=== PATIENT | male | born 1980 | race Caucasian/White ===

== ENCOUNTER 2019-06-06 10:35 | Outpatient (CLI) | payer BC, SELFPAY ==
--- NOTE | ~2019-06-06 | CT_ITS ---
EXAMINATION: CT sinus wo con DATE: 06/06/2019 11:13 INDICATION: Migraine headache for 3 weeks. Sinusitis. TECHNIQUE: Computed tomography (CT) of the paranasal sinuses was performed without contrast. Iterativ e reconstruction technique was employed. Exam dose: 325.47 mGy-cm total exam DLP. COMPARISON: None FINDINGS: There is prominent symmetric soft tissue swelling of the nasal turbinates. There is intralamellar cell of the left middle nasal turbinate. There is leftward deviation of the lower left nasal septum and rightward deviation of the upper nasal septum. The osteomeatal units are patent bilaterally. There is a small mucous retention cyst or focal mucoperiosteal thickening at the inferomedial aspect of the right frontal sinus. The frontal sinuses are otherwise clear. There are focal areas of soft tissue thickening of the ethmoid air cells. There is prominent soft tissue thickening at the inferior aspect of the maxillary sinuses. There is slight focal mucoperiosteal thickening of the sphenoid sinuses. The mastoid air cells are normally developed and aerated. IMPRESSION: Soft tissue swelling of the nasal turbinates Nasal septum deviation Bilateral mucoperiosteal thickening of the maxillary sinuses, with minimal involvement of right front al, ethmoid and bilateral sphenoid sinuses Reviewed, dictated and finalized at [facility]. Reviewed, dictated and finalized at location [facility]. IMPRESSION: Soft tissue swelling of the nasal turbinates Nasal septum deviation Bilateral mucoperiosteal thickening of the maxillary sinuses, with minimal invo lvement of right frontal, ethmoid and bilateral sphenoid sinuses
== END 2019-06-06 10:36 | disposition home or self-care (01) ==
PROVIDERS: PCP Physician Assistant; Visit Provider Physician Assistant
DX: J32.9 Chronic sinusitis, unspecified (principal); J34.2 Deviated nasal septum
CPT/HCPCS: 70486

== ENCOUNTER 2021-05-20 00:14 | Day surgery (SDC) | payer BC, SELFPAY ==
[2021-05-06 13:03] VITALS: BMI 28.4
--- NOTE | 2021-05-18 20:28 | PM.HPGS ---
History of Present Illness History of Present Illness Consent: Risks, benefits, and alternatives have been discussed and questions answered. Patient agrees to proceed with procedure. Chief complaint: family hx of colon ca, neoplasm screening Narrative: Javier Guerrero is a 40 year old male referred for colon cancer screening. His mother had colon cancer. Review of Systems Review of Systems: All systems reviewed & are unremarkable except as noted in HPI and below PMFSH Family History Family History Sibling Depression Grandparent Cerebrovascular accident Mother Carcinoma of colon, Onset Age: 57 Family history of lung cancer, Onset Age: 57 Social History Social History Smoking status: Never smoker Alcohol intake: current Substance use type: does not use Living arrangements: with family Spiritual care concerns: No Meds Home Medications and Allergies Home Medications Medication Instructions Recorded Confirmed Type pantoprazole 40 mg tablet,delayed 40 mg PO QAM 07/25/19 05/06/21 History release Allergies Allergy/AdvReac Type Severity Reaction Status Date / Time diclofenac Allergy Severe Swelling Verified 05/20/21 07:41 Exam Resp: Auscultation: clear to auscultation bilaterally Cardio: Rate: regular rate Rhythm: regular rhythm GI: GI Palp: Yes Soft to palpation and No Tenderness to palpation present (GI) Assessment and Plan Assessment and plan (1) Colon cancer screening: Code(s): Z12.11 - Encounter for screening for malignant neoplasm of colon Status: Acute Assessment and Plan: Colonoscopy with possible biopsy or polypectomy or cautery or injection of substances.
[2021-05-20 07:42] VITALS: BP 116/73; PULSE 78; RESP 20; TEMP 36.8; O2SAT 97; BMI 28.3
[2021-05-20] MEDS: LACTATED RINGERS 1,000 ML 150 ML IV CONT (07:50)
--- NOTE | 2021-05-20 08:34 | P.PNAN_ITS ---
Anes - Initial Pre Proc Eval Procedure: Operation Date: 05/20/21 09:00 Proposed Procedures p Screening Colonoscopy - Felix Baker MD Date/Time: 05/20/21 08:34 Surgeon: Felix Baker MD Pre Op Diagnosis: family hx of colon ca, neoplasm screening Patient Data Age: 40 Gender: M Height: 1.83 m Weight: 94.9 kg Last Vital Signs Temp 98.3 F 05/20/21 07:42 Pulse 78 05/20/21 07:42 Resp 20 05/20/21 07:42 BP 116/73 05/20/21 07:42 Pulse Ox 97 05/20/21 07:42 Allergies Allergy/AdvReac Type Severity Reaction Status Date / Time diclofenac Allergy Severe Swelling Verified 05/20/21 07:41 Home Medications Medication Instructions Recorded Confirmed Type pantoprazole 40 mg tablet,delayed 40 mg PO QAM 07/25/19 05/06/21 History release Patient hx anesthesia problems: none Family hx anesthesia problems: none Results Review: All pre-operative results and documents have been reviewed as part of the pre-operative evaluation. [facility] Past Medical History Medical History (Updated 05/20/21 @ 08:30 by Pio Puente MD) GERD (gastroesophageal reflux disease) Family History Family History Sibling Depression Grandparent Cerebrovascular accident Mother Carcinoma of colon, Onset Age: 57 Family history of lung cancer, Onset Age: 57 Social History Social History Smoking status: Never smoker Alcohol intake: current Substance use type: does not use Living arrangements: with family Spiritual care concerns: No Anes - Eval Final PreProcedure Day of Procedure 05/20/21 08:34 Patient weight: normal Heart: regular rate and rhythm Lungs: clear to auscultation Airway: Mallampati scale class II Neurological: alert and oriented Last oral intake: >/= 8 hours ASA classification: II Emergent: no Anesthetic plan: proceed Anesthesia type and monitoring: general GIVS and standard monitoring Results Review: All pre-operative results and documents have been reviewed as part of the pre-operative evaluation. Informed Consent: The patient's anesthetic plan and its attendant risks and benefits were discussed with the patient/family/POA. Questions were solicited and answers provided to the satisfaction of the patient/family/POA.
[2021-05-20 09:32] VITALS: BP 100/64; PULSE 66; RESP 17; O2SAT 98
[2021-05-20 09:42] VITALS: BP 106/72; PULSE 69; RESP 19; O2SAT 98
[2021-05-20 09:52] VITALS: BP 110/72; PULSE 70; RESP 19; O2SAT 98
== END 2021-05-20 09:55 | disposition home or self-care (01) ==
PROVIDERS: PCP Physician Assistant; Visit Provider Internal Medicine Gastroenterology
PROC: 0DJD8ZZ Inspection of Lower Intestinal Tract, Via Natural or Artificial Opening Endoscopic (ICD-10-PCS; CPT 45378; principal; 2021-05-20 09:00)
DX: Z12.11 Encounter for screening for malignant neoplasm of colon (principal); Z80.0 Family history of malignant neoplasm of digestive organs; K21.9 Gastro-esophageal reflux disease without esophagitis
CPT/HCPCS: 45378; J2001; J2704; J7120

== ENCOUNTER 2023-11-11 15:10 | Outpatient (CLI) | payer BC, SELFPAY ==
--- NOTE | ~2023-11-11 | XR_ITS ---
EXAMINATION: XR chest 2V 11/11/2023 15:20 INDICATION: Hiccups for 4 days PROCEDURE: 2 view chest COMPARISON: 12/05/2015 FINDINGS: The lungs are clear. The lungs are hyperinflated which is consistent with, but not diagnost ic of chronic obstructive pulmonary disease. The cardiomediastinal silhouette is within normal limit s. There are no pleural effusions. There is no pneumothorax suspected. IMPRESSION: 1: NO ACUTE CARDIOPULMONARY DISEASE. Reviewed, dictated and finalized at location [facility].
== END 2023-11-11 15:11 ==
LOC: MICIMG 15:11
PROVIDERS: PCP Physician Assistant; Visit Provider Physician Assistant
DX: R06.6 Hiccough (principal)
CPT/HCPCS: 71046

== ENCOUNTER 2023-12-05 13:48 | Outpatient (CLI) | payer BC, SELFPAY ==
--- NOTE | ~2023-12-05 | CT_ITS ---
EXAMINATION: CTA chest PE protocol DATE: 12/05/2023 14:52 INDICATION: Dyspnea. TECHNIQUE: Computed tomography angiography (CTA) of the chest was performed with 100 mL Omnipaque-350 intravenous contrast timed to evaluate the pulmonary arteries. Coronal maximum intensity projection 3D-reconstructions were created by the technologist. Automated exposure control and iterative reconst ruction technique were employed. The dose-length product was 635.92 mGy-cm. COMPARISON: Chest CT 03/27/2018 FINDINGS: The lungs demonstrate mild atelectasis. No pleural effusion. The heart size is normal. No p ericardial effusion. There is mild bilateral gynecomastia. There are cysts in left kidney measuring u p to 2.3 cm. There is mild thoracic spondylosis. There is mild chronic anterior wedging of T11-L2 briseida tebral bodies. IMPRESSION: 1. No pulmonary embolus. Reviewed, dictated and finalized at location [facility]. IMPRESSION: 1. No pulmonary embolus.
--- NOTE | ~2023-12-05 | XR_ITS ---
XR abdomen obstructive series Ordering provider: Lisa Costello, ZAC History: . N V, PERSISTENT HICCUPS, NO ABD SURGERIES . Comparison: None. FINDINGS: BOWEL: Nonobstructive bowel gas pattern. ORGANOMEGALY: None. SIGNIFICANT PATHOLOGIC CALCIFICATIONS: None. OTHER: No free air is seen under the diaphragm. IMPRESSION: NO ACUTE ABDOMINAL FINDINGS. Reviewed, dictated and finalized at location [facility].
[2023-12-05 15:10] LABS: Basophils Absolute Auto 0.1 K/mm3 (0.0-0.1); Basophils Percent Auto 1.1 % (0.2-1.2); Eosinophils Absolute Auto 0.1 K/mm3 (0-0.3); Eosinophils Percent Auto 2.3 % (0-4.4); Hematocrit 42.9 % (42.0-52.0); Hemoglobin 14.5 g/dL (14.0-18.0); Immature Granulocyte Absolute 0.01 K/mm3 (0.00-0.031); Immature Granulocyte Percent A 0.2 % (0-0.5); Lymphocytes Absolute Auto 1.45 K/mm3 (0.9-3.2); Lymphocytes Percent Auto 26.1 % (18.3-44.2); Mean Corpuscular HGB Conc 33.8 g/dl (32-36); Mean Corpuscular Volume 88.6 fl (80-100); Mean Platelet Volume 9.1 fl (7.4-10.4); Monocytes Absolute Auto 0.5 K/mm3 (0.1-0.6); Monocytes Percent Auto 8.8 % (2.6-8.5); Neutrophils Absolute Auto 3.4 K/mm3 (1.3-6.7); Neutrophils Percent Auto 61.5 % (45.5-73.1); Platelet Count Result 241 k/mm3 (150-375); Red Blood Count 4.84 M/mm3 (4.6-6.20); Red Cell Distribution Width 13.1 % (11.5-14.5); White Blood Count 5.6 K/mm3 (4.5-10.0)
[2023-12-05 15:21] LABS: Alanine Aminotransferase 701 U/L (6-50); Albumin Level 4.6 g/dL (3.5-5.1); Alkaline Phosphatase 192 U/L (38-126); Amylase 108 U/L (30-110); Anion Gap 13 mmol/L (4-12); Aspartate Amino Transferase 326 U/L (17-59); Bilirubin,Total 5.7 mg/dL (0.2-1.3); Blood Urea Nitrogen 10 mg/dL (9-20); Calcium 9.2 mg/dL (8.4-10.2); Carbon Dioxide 26 mmol/L (22-30); Chloride 96 mmol/L (98-107); Estimated Glomerular Filt Rate > 60; Glucose 99 mg/dL (65-110); Magnesium 1.9 mg/dL (1.6-2.3); Potassium 3.9 mmol/L (3.4-5.0); Sodium 135 mmol/L (137-145)
== END 2023-12-05 13:49 | disposition home or self-care (01) ==
LOC: ANHIMG 13:56
PROVIDERS: PCP Physician Assistant; Visit Provider Physician Assistant
DX: R06.00 Dyspnea, unspecified (principal); R11.2 Nausea with vomiting, unspecified
CPT/HCPCS: 36415; 71275; 74019; 80053; 82150; 83735; 85025; Q9967

== ENCOUNTER 2023-12-05 20:53 | Inpatient (IN) | payer BC, SELFPAY ==
--- NOTE | ~2023-12-05 | CT_ITS ---
CT of the Abdomen and Pelvis: Indication: Jaundice Technique: 2.5 mm axial scans were obtained through the abdomen and pelvis following intravenous adm inistration of 100 cc of Omnipaque 350. Dose reduction technique was used on this scan by utilizing a utomated exposure control and iterative reconstruction technique. The dose-length product (DLP) was 5 76.26 mGy-cm. Findings: Scans through the lung bases are unremarkable. The liver, spleen, pancreas, gallbladder, adrenals and right kidney are within normal limits. There i s a 1 cm indeterminate density lesion partially exophytic at the lateral aspect of left kidney (axial image 76). Additional simple left renal cyst present. No evidence of aortic aneurysm. No lymphadeno lena. No bowel obstruction or bowel wall thickening. There is no evidence to suggest acute appendicitis. Images through the pelvis were performed. Urinary bladder unremarkable. No pelvic mass seen. No ascit es. Impression: 1 cm indeterminate lesion at the lateral aspect of left kidney. Pre and postcontrast MR advised to as sess for solid lesion versus hyperdense cystic lesion. No etiology for jaundice identified. Reviewed, dictated and finalized at [facility]. Impression: 1 cm indeterminate lesion at the lateral aspect of left kidney. Pre and postcon trast MR advised to assess for solid lesion versus hyperdense cystic lesion. No etiology for jaundice identified.
--- NOTE | ~2023-12-05 | CT_ITS ---
EXAMINATION: CT abdomen pelvis w con DATE: 12/07/2023 15:05 INDICATION: New abdominal pain TECHNIQUE: Computed tomography (CT) of the abdomen and pelvis was performed with 100 mL Omnipaque-350 intravenous contrast. Automated exposure control and iterative reconstruction technique were employe d. The dose-length product was 559.70 mGy-cm. COMPARISON: CT and MRI dated 12/06/2023 FINDINGS: Lung bases are clear. Heart size is normal. No pericardial or pleural effusion. A couple approximatel y 5 mm low-attenuation cysts in the right hepatic lobe. Gallbladder, spleen, pancreas, bilateral adre nal glands and right kidney are normal. Again seen is a 2.7 cm low-attenuation left renal cyst along with a smaller and higher attenuation 1.2 cm proteinaceous/hemorrhagic left renal cyst which was with out enhancement on the prior CT. Bowels including the appendix are normal. Bladder is normal. No free intraperitoneal gas or fluid. No pathologically enlarged abdominal or pelvic lymphadenopathy. Modera te lumbar and lower thoracic spondylosis. IMPRESSION: 1. No acute intra-abdominal/pelvic process. Reviewed, dictated and finalized at location [facility].
--- NOTE | ~2023-12-05 | MR_ITS ---
EXAMINATION: MR abdomen wo/w con DATE: 12/06/2023 13:02 INDICATION: Left kidney mass. TECHNIQUE: Magnetic resonance imaging (MRI) of the abdomen was performed without and with 19 mL Multi Margarito intravenous contrast. COMPARISON: CT abdomen and pelvis 12/06/2023 FINDINGS: The liver, gallbladder, spleen, pancreas, adrenal glands, and right kidney are normal. There is a 2.6 cm cyst in left kidney. There is a 1.2 cm hemorrhagic cyst in left kidney. There are no pathological ly enlarged lymph nodes. There is no free intraperitoneal fluid. There are no dilated loops of bowel. IMPRESSION: 1. Benign cysts in left kidney. Reviewed, dictated and finalized at location [facility].
[2023-12-05 20:55] VITALS: BP 119/73; PULSE 71; RESP 16; TEMP 36.6; O2SAT 100
[2023-12-06] VITALS (10 sets, daily range): BP systolic 102–119; BP diastolic 61–77; PULSE 63–78; RESP 14–18; TEMP 37.1; O2SAT 97–100; BMI 29.0
--- NOTE | 2023-12-06 02:15 | ED.GENADULT ---
HPI - General Adult General Chief complaint: Recheck/Abnormal Lab/Rx Stated complaint: abnormal labs Time Seen by Provider: 12/06/23 01:32 History of Present Illness HPI narrative: Patient is a 42-year-old gentleman presents emergency department chief complaint of abnormal labs. Patient has not been feeling well for the last 1-2 weeks and signs primary care provider patient started having change in coloration is and psych primary care provider and recheck labs showed bilirubin remains elevated. Patient reports he is not having pain reports that he has no shortness of breath just feels unwell patient has noticed her urine is dark colored Related Data Home Medications Medication Instructions Recorded Confirmed pantoprazole 40 mg tablet,delayed 40 mg PO QAM 07/25/19 05/06/21 release Allergies Allergy/AdvReac Type Severity Reaction Status Date / Time diclofenac Allergy Severe Swelling Verified 05/20/21 07:41 Review of Systems Review of Systems: A 10 system review of systems was completed on the patient and is negative except for what is stated in the HPI. Nursing and ancillary documentation was reviewed. [facility] Past Medical History Medical History GERD (gastroesophageal reflux disease) Family History Family History Sibling Depression Grandparent Cerebrovascular accident Mother Carcinoma of colon, Onset Age: 57 Family history of lung cancer, Onset Age: 57 Social History Social History Smoking status: Never smoker Alcohol intake: current Substance use type: does not use Living arrangements: with family Spiritual care concerns: No Exam Narrative: GENERAL: Well-appearing, well-nourished, and in no acute distress. HEAD: Normocephalic, atraumatic. EYES: PERRLA and EOMI. Scleral icterus ENT: Nares clear, no rhinorrhea or epistaxis. Mucous membranes moist. NECK: Supple. CHEST: Clear to auscultation. No respiratory distress. HEART: Regular rate and rhythm. No murmur heard. Normal peripheral pulses. ABDOMEN: Soft, nontender, nondistended, normal active bowel sounds. EXTREMITIES: Normal range of motion. No edema. SKIN: Warm, dry, no rash. Jaundice NEURO: No focal deficits. Alert and oriented x3. PSYCH: Normal mood and affect. Course Vital Signs Vital signs: Vital Signs Temperature 36.6 C 12/05/23 20:55 Pulse Rate 71 12/05/23 20:55 Respiratory Rate 16 12/05/23 20:55 Blood Pressure 119/73 12/05/23 20:55 Pulse Oximetry 100 12/05/23 20:55 Oxygen Delivery Room Air 12/05/23 20:55 Temperature 36.6 C 12/05/23 20:55 Pulse Rate 70 12/06/23 03:42 Respiratory Rate 14 12/06/23 03:42 Blood Pressure 113/71 12/06/23 03:42 Pulse Oximetry 100 12/06/23 03:42 Oxygen Delivery Room Air 12/05/23 20:55 Medical Decision Making MDM Narrative Medical decision making narrative: Differential diagnosis includes pancreatic mass, viral hepatitis, toxic causes, Laboratory studies were obtained on the patient which showed significantly elevated liver enzymes including bilirubin CT scan of the abdomen pelvis showed no acute abnormalities viral hepatitis panel was negative. The case was discussed with hospitalist for admission Vital Signs Vital Signs: Vital Signs Temperature 36.6 C 12/05/23 20:55 Pulse Rate 71 12/05/23 20:55 Respiratory Rate 16 12/05/23 20:55 Blood Pressure 119/73 12/05/23 20:55 Pulse Oximetry 100 12/05/23 20:55 Oxygen Delivery Room Air 12/05/23 20:55 Temperature 36.6 C 12/05/23 20:55 Pulse Rate 70 12/06/23 03:42 Respiratory Rate 14 12/06/23 03:42 Blood Pressure 113/71 12/06/23 03:42 Pulse Oximetry 100 12/06/23 03:42 Oxygen Delivery Room Air 12/05/23 20:55 Lab Data 12/06/23 02:18
[2023-12-06 02:28] LABS: Basophils Absolute Auto 0.1 K/mm3 (0.0-0.1); Basophils Percent Auto 0.8 % (0.2-1.2); Eosinophils Absolute Auto 0.1 K/mm3 (0-0.3); Eosinophils Percent Auto 1.8 % (0-4.4); Hematocrit 42.2 % (42.0-52.0); Hemoglobin 14.6 g/dL (14.0-18.0); Immature Granulocyte Absolute 0.02 K/mm3 (0.00-0.031); Immature Granulocyte Percent A 0.3 % (0-0.5); Lymphocytes Absolute Auto 1.91 K/mm3 (0.9-3.2); Lymphocytes Percent Auto 29.1 % (18.3-44.2); Mean Corpuscular HGB Conc 34.6 g/dl (32-36); Mean Corpuscular Hemoglobin 30.1 pg (26-34); Mean Platelet Volume 9.5 fl (7.4-10.4); Monocytes Absolute Auto 0.6 K/mm3 (0.1-0.6); Monocytes Percent Auto 8.4 % (2.6-8.5); Neutrophils Absolute Auto 3.9 K/mm3 (1.3-6.7); Neutrophils Percent Auto 59.6 % (45.5-73.1); Platelet Count Result 255 k/mm3 (150-375); Red Blood Count 4.85 M/mm3 (4.6-6.20); White Blood Count 6.6 K/mm3 (4.5-10.0)
[2023-12-06] MEDS: LORazepam INJ (*CRX) 2 MG/ML VIAL 0.5 MG IV PUSH (02:32)
[2023-12-06 02:40] LABS: Partial Thromboplastin Time 24.8 Seconds (22.3-36.8); Prothrombin Time 13.3 Seconds (11.1-14.7)
[2023-12-06 02:41] LABS: Lactic Acid Reflex 1.1 mmol/L (0.7-2.0); Lipase 237 U/L (23-300)
[2023-12-06 02:45] LABS: Albumin Level 4.7 g/dL (3.5-5.1); Alkaline Phosphatase 217 U/L (38-126); Aspartate Amino Transferase 419 U/L (17-59); Bilirubin Direct 2.6 mg/dL (0-0.3); Bilirubin,Total 6.7 mg/dL (0.2-1.3)
[2023-12-06 02:46] LABS: Albumin Level 4.7 g/dL (3.5-5.1); Alkaline Phosphatase 214 U/L (38-126); Anion Gap 16 mmol/L (4-12); Aspartate Amino Transferase 417 U/L (17-59); Bilirubin,Total 6.7 mg/dL (0.2-1.3); Blood Urea Nitrogen 11 mg/dL (9-20); Calcium 9.6 mg/dL (8.4-10.2); Carbon Dioxide 22 mmol/L (22-30); Chloride 98 mmol/L (98-107); Estimated CRCL calculation 101 ml/min; Estimated Glomerular Filt Rate > 60; Glucose 109 mg/dL (65-110); Potassium 3.5 mmol/L (3.4-5.0); Sodium 136 mmol/L (137-145)
[2023-12-06 03:04] LABS: Add Urine Microscopic? YES; Appearance Urine Clear (Clear); Bacteria Urine None Seen /hpf; Bilirubin Urine 3+ (Negative); Blood Urine Negative (Negative); Color Urine Dark Yellow (Yellow); Glucose Urine UA Negative (Negative); Ketones Urine 2+ mg/dL (Negative); Leukocyte Esterase Ur 1+ LEU/UL (Negative); Need Manual Microscopic Reviewed; Nitrate Urine Positive (Negative); Non Pathogenic Casts 0-2; Protein Urine 1+ mg/dL (Negative); RBC Urine 0-2 /hpf (0-2); Specific Grav Ur 1.041 (1.001-1.035); Squamous Epithelial Cell Urine None Seen /hpf (Few); WBC Urine 0-5 /hpf (0-3); pH Urine 5.5 (5.0-9.0)
[2023-12-06 03:37] LABS: Alanine Aminotransferase 814 U/L (6-50); Alanine Aminotransferase 831 U/L (6-50)
[2023-12-06 04:27] LABS: Hepatitis B Surface Antigen Negative (Negative)
[2023-12-06 04:33] LABS: HAV RESULT Negative (Negative); Hepatitis B Core IgM Result Negative (Negative)
[2023-12-06 04:44] LABS: Hepatitis C Virus Antibody Negative (Negative)
[2023-12-06 07:22] LABS: Acetaminophen < 10 ug/mL (10-30)
[2023-12-06] MEDS: SODIUM CHLORIDE 0.9% IV 1,000 ML 125 ML IV CONT ×2 (08:17→21:00)
--- NOTE | 2023-12-06 09:54 | ADMGEN ---
This patient, Javier Guerrero, was admitted to 3 [facility] Surg Room 314-01. Patient/family oriented to hospital policies and general routines including ID bracelet, bed and alarms, visiting hours, pain management, procedures, bathroom and other care routines, personal items, smoking policy, room service/diet, and visiting hours. Information on how to activate the Rapid Response Team has been discussed. Patient/Family are encouraged to report perceived risks to care and to ask questions if they do not understand what they are told or what they should do. Report from Alee in ER.
--- NOTE | 2023-12-06 14:01 | WPDGICN ---
Assessment and Plan Assessment and plan (1) Elevated liver enzymes: Code(s): R74.8 - Abnormal levels of other serum enzymes Status: Acute Assessment and Plan: here with almost 5 days of flu like symptom, pending covid/influenza/EBV/CMV most likely viral related imaging is completely normal monitor, ok to advance diet (2) Flu-like symptoms: Code(s): R68.89 - Other general symptoms and signs Status: Acute (3) Acute hepatitis: Code(s): B17.9 - Acute viral hepatitis, unspecified Status: Acute Assessment and Plan: hepatitis a/b/c negative probably another viral etiology will monitor (4) GERD (gastroesophageal reflux disease): Code(s): K21.9 - Gastro-esophageal reflux disease without esophagitis Status: Acute Assessment and Plan: on ppi (5) Nausea and vomiting in adult: Code(s): R11.2 - Nausea with vomiting, unspecified Status: Acute GI Consult Note Consult date/time: 12/06/23 14:01 Reason for consult: elevated liver enzymes, flu-lie symptom HPI: Javier Guerrero is a 42 year old male with h/o GERD on protonix (last egd about 8 years ago). He is healthy and about 5 days ago started with sore throat, hiccups, cough then shortness of breath, malaise and generalized weakness, chills and discomfort in throat after eating, also about 2 days ago had n/v, denies abdominal pain. Yesterday noted icteric sclerae and dark urine. Denies alcohol use, antibiotics or acetaminophen. His PCP gave him course of steroid but denies any other medication. He was found to have elevated liver enzymes and admitted to hospital. He had CTA chest and MRI abdomen, no major findings other than cyst in kidney. Hepatitis negative, denies sick contacts. He works with [employer] and he works with several people, no recent trips outside the country. Denies h/o liver disease. Review of Systems Constitutional: Constitutional: Reports body ache(s), Reports chills, Reports fatigue and Reports lethargy Eyes: Eyes: Denies blurry vision ENT: Reports Normal hearing present Cardiovascular: Cardiovascular: Denies chest pain Respiratory: Respiratory: Reports dyspnea on exertion Gastrointestinal: Gastrointestinal: Denies abdominal pain, Reports nausea and Reports vomiting Genitourinary: Genitourinary: Denies urinary frequency Comments: dark urine Musculoskeletal: Musculoskeletal: Reports myalgias Integumentary/Breasts: Skin/Breast: Denies dry skin Neurologic: Denies confusion Psychiatric: Psychiatric: Denies behavioral changes [facility] Past Medical History Medical History (Updated 12/06/23 @ 14:07 by John Jefferson MD) Elevated liver enzymes Flu-like symptoms GERD (gastroesophageal reflux disease) Nausea and vomiting in adult Family History Family History (Updated 12/06/23 @ 09:57 by Virginie Whipple RN) Sibling Depression Grandparent Cerebrovascular accident Family history of lung cancer Mother Carcinoma of colon, Onset Age: 57 Social History Social History Smoking status: Never smoker Alcohol intake: current Drinks per week: 1 Substance use: never Substance use type: does not use Do You Feel Safe in your Home?: Yes Lack of Transportation: No Lack of Food: Never True Current Housing: I Have Housing Concerned About Future Housing: No Difficulty Paying Gas/Electric Bills: No Difficulty Paying for Meds: No Currently Unemployed: No Education: Don't Know Difficulty w/ Childcare or Family Care: No Living arrangements: with family Spiritual care concerns: No Meds Home Medications and Allergies Home Medications Medication Instructions Recorded Confirmed Type pantoprazole 40 mg tablet,delayed 40 mg PO QAM 07/25/19 12/06/23 History release Allergies Allergy/AdvReac Type Severity Reaction Status Date / Time d
[2023-12-06 14:10] LABS: Influenza A QL RT-PCR Negative (Negative); Influenza B QL RT-PCR Negative (Negative); RSV RNA, RT-PCR Negative (Negative); SARS-CoV-2 RNA PCR Negative (Negative)
--- NOTE | 2023-12-06 16:08 | PM.IMHP ---
H&P: HPI History of Present Illness Date/Time: 12/06/23 16:08 Chief Complaint: gen weakness and sore throat Narrative: 42-year-old male with no significant past medical history presented on account of generalized weakness, sore throat, vomiting and nausea. Symptoms has been going on for the past 3 weeks, all symptoms represented by sore throat. Noted in the last 1 week he has not been able to eat has lost about 10 lb. S wound noticed a yellow lesion itself is skin and eyes. Denies any fever, chest pain, dysuria, diarrhea or focal weakness. ER eval vital signs wnl, labs notable for T vinny 6.7, AST 417, ALT 831, Alk phos 214, Acetaminophen <10l, hepatitis viral panel, Flu , Covid and RSV negative. CTA chest, AP and MRI ABD negative. MRI showed simple renal cyst. GI eval noted Review of Systems Review of Systems: All other systems were reviewed and negative except as noted in the HPI above. [facility] Past Medical History Medical History (Updated 12/06/23 @ 14:07 by John Jefferson MD) Elevated liver enzymes Flu-like symptoms GERD (gastroesophageal reflux disease) Nausea and vomiting in adult Family History Family History (Updated 12/06/23 @ 09:57 by Virginie Whipple RN) Sibling Depression Grandparent Cerebrovascular accident Family history of lung cancer Mother Carcinoma of colon, Onset Age: 57 Social History Social History Smoking status: Never smoker Alcohol intake: current Drinks per week: 1 Substance use: never Substance use type: does not use Do You Feel Safe in your Home?: Yes Lack of Transportation: No Lack of Food: Never True Current Housing: I Have Housing Concerned About Future Housing: No Difficulty Paying Gas/Electric Bills: No Difficulty Paying for Meds: No Currently Unemployed: No Education: Don't Know Difficulty w/ Childcare or Family Care: No Living arrangements: with family Spiritual care concerns: No Meds Home Medications and Allergies Home Medications Medication Instructions Recorded Confirmed Type pantoprazole 40 mg tablet,delayed 40 mg PO QAM 07/25/19 12/06/23 History release Allergies Allergy/AdvReac Type Severity Reaction Status Date / Time diclofenac Allergy Severe Swelling Verified 03/02/22 07:41 Vital Signs Vital Signs - 24 hr 12/05/23 20:55 12/06/23 03:42 12/06/23 03:00 Temperature 97.9 F Pulse Rate 71 70 Respiratory Rate 16 14 17 Blood Pressure 119/73 113/71 Pulse Oximetry 100 100 100 Oxygen Delivery Room Air 12/06/23 04:00 12/06/23 05:01 12/06/23 06:02 Temperature Pulse Rate 67 65 63 Respiratory Rate 16 17 15 Blood Pressure 119/65 116/68 111/75 Pulse Oximetry 97 100 100 Oxygen Delivery 12/06/23 06:45 12/06/23 07:58 12/06/23 08:16 Temperature 98.7 F Pulse Rate 76 73 78 Respiratory Rate 18 18 18 Blood Pressure 111/77 114/69 116/67 Pulse Oximetry 100 97 100 Oxygen Delivery Exam Narrative: General: alert and comfortable Eyes: EOMI, PERRLA , jaundice ENNT External ears normal, Neck is supple, no masses, Respiratory systems: Clear to auscultation Cardiovascular S1, S2, normal rhythm, no murmur, rub, or gallop; no thrill or palpable murmurs on palpation. Gastrointestinal: soft, non-tender, and non-distended abdomen with no masses; BS present Skin: sallow Musculoskeletal: no abnormality and no tenderness, normal ROM Neurologic: Alert and oriented x3, non focal Mental Status Exam: normal affect H&P: Results Labs Labs: Short CBC 12/06/23 Range/Units 02:18 WBC 6.6 (4.5-10.0) K/mm3 Hgb 14.6 (14.0-18.0) g/dL Hct 42.2 (42.0-52.0) % Plt Count 255 (150-375) k/mm3 [facility] 12/06/23 02:18 Sodium 136 L Potassium 3.5 Chloride 98 Carbon Dioxide 22 BUN 11 Creatinine 0.90 Glucose 109 Calcium 9.6 Liver Function 12/06/23 12/06/2311/19
[2023-12-07] MEDS: SODIUM CHLORIDE 0.9% IV 1,000 ML 125 ML IV CONT ×3 (04:53→22:21)
[2023-12-07 05:26] VITALS: BP 104/65; PULSE 76; RESP 16; TEMP 36.6; O2SAT 99
[2023-12-07 07:07] LABS: Basophils Absolute Auto 0.1 K/mm3 (0.0-0.1); Basophils Percent Auto 1.1 % (0.2-1.2); Eosinophils Absolute Auto 0.2 K/mm3 (0-0.3); Eosinophils Percent Auto 4.1 % (0-4.4); Hematocrit 40.8 % (42.0-52.0); Hemoglobin 13.8 g/dL (14.0-18.0); Immature Granulocyte Absolute 0.02 K/mm3 (0.00-0.031); Immature Granulocyte Percent A 0.4 % (0-0.5); Lymphocytes Absolute Auto 1.41 K/mm3 (0.9-3.2); Lymphocytes Percent Auto 30.3 % (18.3-44.2); Mean Corpuscular HGB Conc 33.8 g/dl (32-36); Mean Corpuscular Hemoglobin 30.4 pg (26-34); Mean Corpuscular Volume 89.9 fl (80-100); Mean Platelet Volume 9.4 fl (7.4-10.4); Monocytes Absolute Auto 0.4 K/mm3 (0.1-0.6); Monocytes Percent Auto 9.2 % (2.6-8.5); Neutrophils Absolute Auto 2.6 K/mm3 (1.3-6.7); Neutrophils Percent Auto 54.9 % (45.5-73.1); Platelet Count Result 222 k/mm3 (150-375); Red Blood Count 4.54 M/mm3 (4.6-6.20); Red Cell Distribution Width 13.4 % (11.5-14.5); White Blood Count 4.7 K/mm3 (4.5-10.0)
[2023-12-07 07:32] LABS: Albumin Level 4.2 g/dL (3.5-5.1); Alkaline Phosphatase 172 U/L (38-126); Anion Gap 10 mmol/L (4-12); Aspartate Amino Transferase 571 U/L (17-59); Bilirubin,Total 6.9 mg/dL (0.2-1.3); Blood Urea Nitrogen 7 mg/dL (9-20); Calcium 9.3 mg/dL (8.4-10.2); Carbon Dioxide 26 mmol/L (22-30); Chloride 102 mmol/L (98-107); Creatine Kinase 40 U/L (55-170); Estimated CRCL calculation 126 ml/min; Estimated Glomerular Filt Rate > 60; Glucose 91 mg/dL (65-110); Magnesium 2.1 mg/dL (1.6-2.3); Potassium 4.3 mmol/L (3.4-5.0); Sodium 138 mmol/L (137-145)
[2023-12-07 07:38] LABS: Alanine Aminotransferase 999 U/L (6-50)
[2023-12-07 09:09] VITALS: O2SAT 99
--- NOTE | 2023-12-07 13:33 | PM.IMPN ---
Progress Note: A&P Assessment and Plan (1) Nausea and vomiting in adult: Code(s): R11.2 - Nausea with vomiting, unspecified Status: Acute (2) Elevated liver enzymes: Code(s): R74.8 - Abnormal levels of other serum enzymes Status: Acute (3) Acute hepatitis: Code(s): B17.9 - Acute viral hepatitis, unspecified Status: Acute Plan Acute hepatitis etiology is likely viral given that patient had sore throat prior to onset of symptoms vs autoimmune Jaundice noted Bili 6.7 to 6.9, ALT 831 to 999, AST 417 to 571 Hep viral panel, FLu, Covid and RSV negative MRI Abd showed normal liver and simple renal cyst Gi following EBV, CMV, Mitochondrial ab monitor closely GERD Continue Protonic DVT prophylaxis on on Lovenox Subjective Date/time seen: 12/07/23 13:33 Interval history: Patient comfortable at bedside, and patient noted improvement and appetite is improving. LFT still increasing Review of Systems Review of Systems: All other systems were reviewed and negative except as noted in the HPI above. Exam Narrative: General: alert and comfortable Eyes: EOMI, PERRLA , jaundice ENNT External ears normal, Neck is supple, no masses, Respiratory systems: Clear to auscultation Cardiovascular S1, S2, normal rhythm, no murmur, rub, or gallop; no thrill or palpable murmurs on palpation. Gastrointestinal: soft, non-tender, and non-distended abdomen with no masses; BS present Skin: sallow Musculoskeletal: no abnormality and no tenderness, normal ROM Neurologic: Alert and oriented x3, non focal Mental Status Exam: normal affect Objective Data Vital Signs Vital Signs: Vital Signs - 24 hr 12/06/23 14:00 12/06/23 20:34 12/06/23 20:00 Temperature 98.7 F 98.8 F Pulse Rate 65 73 Respiratory Rate 18 17 Blood Pressure 102/61 115/67 Pulse Oximetry 98 98 Oxygen Delivery Room Air Fraction of Inspired Oxygen 12/07/23 05:26 12/07/23 09:09 12/07/23 08:00 Temperature 97.8 F Pulse Rate 76 Respiratory Rate 16 Blood Pressure 104/65 Pulse Oximetry 99 99 Oxygen Delivery Room Air Room Air Fraction of Inspired Oxygen 21 Intake/Output Intake/Output: Intake & Output 12/04/23 12/05/23 12/06/23 12/07/23 23:59 23:59 23:59 23:59 Intake Total 1999 1725.4 Balance 1999 1725.4 Meds/Results Medications: Active Medications Generic Name Dose Route Start Last Admin Trade Name Rachel PRN Reason Stop Dose Admin Enoxaparin Sodium 40 mg 12/07/23 09:00 12/07/23 09:24 Enoxaparin 40 Mg/0.4 Ml Syringe SUB-Q 40 mg DAILY SHIRA Administration Sodium Chloride 1,000 mls @ 125 mls/hr 12/06/23 06:50 12/07/23 04:53 Normal Saline Iv IV CONT 125 mls/hr .Q8H SHIRA Administration Acetylcysteine 14,550 mg/ 272.75 mls @ 272.75 mls/hr 12/07/23 13:32 Dextrose IVPB 12/07/23 13:33 ONCE ONE Radiology Results: ITS Impressions Abdomen/Pelvis CT 12/06/23 06:18 Impression: 1 cm indeterminate lesion at the lateral aspect of left kidney. Pre and postcontrast MR advised to assess for solid lesion versus hyperdense cystic lesion. No etiology for jaundice identified. Abdomen MRI 12/06/23 13:54 IMPRESSION: 1. Benign cysts in left kidney. Labs Labs: Laboratory Results - last 24 hr 12/06/23 12/07/23 13:11 06:52 WBC 4.7 RBC 4.54 L Hgb 13.8 L Hct 40.8 L MCV 89.9 MCH 30.4 MCHC 33.8 RDW 13.4 Plt Count 222 MPV 9.4 Immature Gran % (Auto) 0.4 Neut % (Auto) 54.9 Lymph % (Auto) 30.3 [place] % (Auto) 9.2 H Eos % (Auto) 4.1 Baso % (Auto) 1.1 Lymph # (Auto) 1.41 [place] # (Auto) 0.4 Eos # (Auto) 0.2 Baso # (Auto) 0.1 Abs Immat Gran (auto) 0.02 Absolute Neuts (auto) 2.6 Absolute Nucleated RBC 0.000 Nucleated RBC % 0.0 Sodium 138 Potassium 4.3 Chloride 102 Carbon Dioxide 26 Anion Gap 10 BUN 7 L Creatinine 0.70 Estim Creat Clear Calc
[2023-12-07 14:00] VITALS: BP 114/68; PULSE 65; RESP 16; TEMP 37.1; O2SAT 98
[2023-12-07] MEDS: methylPREDNISolone SOD SUCC 40 MG VIAL IV PUSH (17:00)
[2023-12-07] MEDS: diphenhydrAMINE HCl INJ 50 MG/ML VIAL IV PUSH (17:00)
--- NOTE | 2023-12-07 17:46 | WPDGIPROGNO ---
Progress Note: A&P Assessment and Plan (1) Acute hepatitis: Code(s): B17.9 - Acute viral hepatitis, unspecified Status: Acute Assessment and Plan: denies any recent medication- only given steroid and zofran by his pcp when he was already sick, no acetaminophen, no antibiotics work up in progress- pending hbv,cmv,hsv,hiv also autoimmune panel continue to monitor enzymes, if keep going up then may need transfer to hepatology service he received empirically mucomyst iv, discontinued after bag almost done because allergic reaction (2) Elevated liver enzymes: Code(s): R74.8 - Abnormal levels of other serum enzymes Status: Acute (3) Flu-like symptoms: Code(s): R68.89 - Other general symptoms and signs Status: Acute Assessment and Plan: it seems that started out like flu like symptoms- influenza, rsv and covid negative still with sore throat (4) Nausea and vomiting in adult: Code(s): R11.2 - Nausea with vomiting, unspecified Status: Acute Subjective Date/time seen: 12/07/23 17:46 Interval history: still with sore throat developed pruritus after mucomyst iv- discontinued Review of Systems Review of Systems: All systems reviewed & are unremarkable except as noted in HPI and below Exam Const: General: comfortable and no acute distress Other: icteric HENMT: Face/Nose/Sinus: Normal nares present Eyes: Sclera: normal sclerae Other: icteric Neck: Neck: supple Resp: Auscultation: clear to auscultation bilaterally Cardio: Rate: regular rate Rhythm: regular rhythm GI: Inspection: non-distended GI Palp: Yes Soft to palpation and No Tenderness to palpation present (GI) Auscultation: normal bowel sounds Skin: Other: jaundice Neuro: Speech: normal speech Motor exam (neuro): 5/5 motor strength present throughout Extrem: General: normal to inspection Psych: Mental Status: mental status grossly normal Objective Data Vital Signs Vital Signs: Vital Signs - 24 hr 12/06/23 20:34 12/06/23 20:00 12/07/23 05:26 Temperature 98.8 F 97.8 F Pulse Rate 73 76 Respiratory Rate 17 16 Blood Pressure 115/67 104/65 Pulse Oximetry 98 99 Oxygen Delivery Room Air Fraction of Inspired Oxygen 12/07/23 09:09 12/07/23 08:00 12/07/23 14:00 Temperature 98.7 F Pulse Rate 65 Respiratory Rate 16 Blood Pressure 114/68 Pulse Oximetry 99 98 Oxygen Delivery Room Air Room Air Fraction of Inspired Oxygen 21 Intake/Output Intake/Output: Intake & Output 12/04/23 12/05/23 12/06/23 12/07/23 23:59 23:59 23:59 23:59 Intake Total 1999 2725.4 Balance 1999 2725.4 Meds/Results Medications: Active Medications Generic Name Dose Route Start Last Admin Trade Name Freq PRN Reason Stop Dose Admin Diphenhydramine HCl 25 mg 12/07/23 16:52 Diphenhydramine Hcl Inj 50 Mg/Ml Vial IV PUSH Q6H PRN Itching Enoxaparin Sodium 40 mg 12/07/23 09:00 12/07/23 16:02 Enoxaparin 40 Mg/0.4 Ml Syringe SUB-Q Not Given DAILY SHIRA Sodium Chloride 1,000 mls @ 125 mls/hr 12/06/23 06:50 12/07/23 16:02 Normal Saline Iv IV CONT 125 mls/hr .Q8H SHIRA Administration Radiology Results: ITS Impressions Abdomen MRI 12/06/23 13:54 IMPRESSION: 1. Benign cysts in left kidney. Abdomen/Pelvis CT 12/07/23 15:09 IMPRESSION: 1. No acute intra-abdominal/pelvic process. Labs Labs: Laboratory Results - last 24 hr 12/07/23 06:52 WBC 4.7 RBC 4.54 L Hgb 13.8 L Hct 40.8 L MCV 89.9 MCH 30.4 MCHC 33.8 RDW 13.4 Plt Count 222 MPV 9.4 Immature Gran % (Auto) 0.4 Neut % (Auto) 54.9 Lymph % (Auto) 30.3 [place] % (Auto) 9.2 H Eos % (Auto) 4.1 Baso % (Auto) 1.1 Lymph # (Auto) 1.41 [place] # (Auto) 0.4 Eos # (Auto) 0.2 Baso # (Auto) 0.1 Abs Immat Gran (auto) 0.02 Absolute Neuts (auto) 2.6 Absolute Nucleated RBC 0.000 Nucleated RBC % 0.0 Sodium 138 Potassium 4.3
[2023-12-07 20:25] VITALS: BP 131/76; PULSE 75; RESP 18; TEMP 37.4; O2SAT 98
[2023-12-08 03:48] LABS: Ceruloplasmin 27 mg/dL (14-30)
[2023-12-08 05:52] VITALS: BP 111/70; PULSE 68; RESP 18; TEMP 36.8; O2SAT 98
[2023-12-08 06:03] LABS: EBV Nuclear Ab Antibody <18.00 U/mL; EBV Virus Capsid Ag IgG Ab <18.00 U/mL; EBV Virus Capsid Ag IgM Ab <36.00 U/mL
[2023-12-08] MEDS: SODIUM CHLORIDE 0.9% IV 1,000 ML 125 ML IV CONT ×3 (06:47→22:20)
[2023-12-08 07:09] LABS: Basophils Absolute Auto 0.1 K/mm3 (0.0-0.1); Basophils Percent Auto 0.7 % (0.2-1.2); Eosinophils Absolute Auto 0.1 K/mm3 (0-0.3); Eosinophils Percent Auto 0.6 % (0-4.4); Hematocrit 42.6 % (42.0-52.0); Immature Granulocyte Absolute 0.02 K/mm3 (0.00-0.031); Immature Granulocyte Percent A 0.2 % (0-0.5); Lymphocytes Absolute Auto 1.65 K/mm3 (0.9-3.2); Lymphocytes Percent Auto 18.2 % (18.3-44.2); Mean Corpuscular HGB Conc 32.9 g/dl (32-36); Mean Corpuscular Hemoglobin 29.5 pg (26-34); Mean Corpuscular Volume 89.9 fl (80-100); Mean Platelet Volume 9.4 fl (7.4-10.4); Monocytes Absolute Auto 0.6 K/mm3 (0.1-0.6); Monocytes Percent Auto 6.6 % (2.6-8.5); Neutrophils Absolute Auto 6.7 K/mm3 (1.3-6.7); Neutrophils Percent Auto 73.7 % (45.5-73.1); Platelet Count Result 242 k/mm3 (150-375); Red Blood Count 4.74 M/mm3 (4.6-6.20); Red Cell Distribution Width 13.4 % (11.5-14.5); White Blood Count 9.1 K/mm3 (4.5-10.0)
[2023-12-08 07:24] LABS: Albumin Level 4.2 g/dL (3.5-5.1); Alkaline Phosphatase 175 U/L (38-126); Anion Gap 8 mmol/L (4-12); Aspartate Amino Transferase 558 U/L (17-59); Bilirubin,Total 7.4 mg/dL (0.2-1.3); Blood Urea Nitrogen 7 mg/dL (9-20); Carbon Dioxide 26 mmol/L (22-30); Chloride 104 mmol/L (98-107); Estimated CRCL calculation 111 ml/min; Estimated Glomerular Filt Rate > 60; Glucose 97 mg/dL (65-110); Potassium 3.6 mmol/L (3.4-5.0); Sodium 138 mmol/L (137-145)
[2023-12-08 07:27] LABS: Immunoglobulin A 164 mg/dL (70-400); Immunoglobulin G 699 mg/dL (700-1600); Immunoglobulin M 49 mg/dL (40-230)
[2023-12-08 07:32] LABS: Alanine Aminotransferase 1023 U/L (6-50)
[2023-12-08 08:00] LABS: HIV 1/2 Ab P24 Ag Result Negative (Negative)
[2023-12-08] MEDS: predniSONE 20 MG TABLET 40 MG PO (09:16)
[2023-12-08 09:58] LABS: INR 0.9; Prothrombin Time 12.8 Seconds (11.1-14.7)
--- NOTE | 2023-12-08 12:44 | PC.NURSE ---
Patient's is requesting patient's pantoprazole be restarted. RN asked if patient is having GERD symptoms. Patient states that he takes pantoprazole to help him swallow. RN called hospitalist Bijan and explained the situation. Hospitalist Bijan would like to continue holding medication at this time. RN updated patient and .
--- NOTE | 2023-12-08 12:50 | PC.NURSE ---
RN spoke with [facility] transfer center. No available beds at this time.
--- NOTE | 2023-12-08 13:40 | PM.IMPN ---
Progress Note: A&P Assessment and Plan (1) Nausea and vomiting in adult: Code(s): R11.2 - Nausea with vomiting, unspecified Status: Acute (2) Elevated liver enzymes: Code(s): R74.8 - Abnormal levels of other serum enzymes Status: Acute (3) Acute hepatitis: Code(s): B17.9 - Acute viral hepatitis, unspecified Status: Acute Plan Acute hepatitis etiology is likely viral given that patient had sore throat prior to onset of symptoms vs autoimmune Jaundice noted Bili 6.7 to 7.4, ALT 831 to 1023, AST 417 to 558 Hep viral panel, FLu, Covid and RSV negative HIV, EBV negative CMV, Mitochondrial and JORDON and Actin abd pending MRI Abd showed normal liver and simple renal cyst Gi following repeat CMP Currently pending transfer to [facility] GERD Hold Protonix DVT prophylaxis on on Lovenox Subjective Date/time seen: 12/08/23 13:40 Interval history: Patient noted markedly improving symptoms however liver enzymes still going up ALT 1023, bili 7.[address] Rodriguez from [facility] hepatology and he accepted patient and patient is awaiting transfer Review of Systems Review of Systems: All other systems were reviewed and negative except as noted in the HPI above. Exam Narrative: General: alert and comfortable Eyes: EOMI, PERRLA , jaundice ENNT External ears normal, Neck is supple, no masses, Respiratory systems: Clear to auscultation Cardiovascular S1, S2, normal rhythm, no murmur, rub, or gallop; no thrill or palpable murmurs on palpation. Gastrointestinal: soft, non-tender, and non-distended abdomen with no masses; BS present Skin: sallow Musculoskeletal: no abnormality and no tenderness, normal ROM Neurologic: Alert and oriented x3, non focal Mental Status Exam: normal affect Objective Data Vital Signs Vital Signs: Vital Signs - 24 hr 12/07/23 14:00 12/07/23 20:25 12/08/23 05:52 Temperature 98.7 F 99.3 F 98.3 F Pulse Rate 65 75 68 Respiratory Rate 16 18 18 Blood Pressure 114/68 131/76 111/70 Pulse Oximetry 98 98 98 Oxygen Delivery 12/08/23 09:16 Temperature Pulse Rate Respiratory Rate Blood Pressure Pulse Oximetry Oxygen Delivery Room Air Intake/Output Intake/Output: Intake & Output 09/1612/06/23 12/07/23 12/08/23 23:59 23:59 23:59 23:59 Intake Total 1999 3515.0 2030 Balance 1999 3515.0 2030 Meds/Results Medications: Active Medications Generic Name Dose Route Start Last Admin Trade Name Freq PRN Reason Stop Dose Admin Diphenhydramine HCl 25 mg 12/07/23 16:52 Diphenhydramine Hcl Inj 50 Mg/Ml Vial IV PUSH Q6H PRN Itching Enoxaparin Sodium 40 mg 12/07/23 09:00 12/08/23 08:53 Enoxaparin 40 Mg/0.4 Ml Syringe SUB-Q Not Given DAILY SHIRA Sodium Chloride 1,000 mls @ 125 mls/hr 12/06/23 06:50 12/08/23 06:47 Normal Saline Iv IV CONT 125 mls/hr .Q8H SHIRA Administration Prednisone 40 mg 12/07/23 18:35 12/08/23 09:16 Prednisone 20 Mg Tablet PO 40 mg DAILY@0800 SHIRA Administration Radiology Results: ITS Impressions Abdomen MRI 12/06/23 13:54 IMPRESSION: 1. Benign cysts in left kidney. Abdomen/Pelvis CT 12/07/23 15:09 IMPRESSION: 1. No acute intra-abdominal/pelvic process. Labs Labs: Laboratory Results - last 24 hr 12/07/23 12/08/23 12/08/23 06:52 06:58 09:03 WBC 9.1 RBC 4.74 Hgb 14.0 Hct 42.6 MCV 89.9 MCH 29.5 MCHC 32.9 RDW 13.4 Plt Count 242 MPV 9.4 Immature Gran % (Auto) 0.2 Neut % (Auto) 73.7 H Lymph % (Auto) 18.2 L [place] % (Auto) 6.6 Eos % (Auto) 0.6 Baso % (Auto) 0.7 Lymph # (Auto) 1.65 [place] # (Auto) 0.6 Eos # (Auto) 0.1 Baso # (Auto) 0.1 Abs Immat Gran (auto) 0.02 Absolute Neuts (auto) 6.7 Absolute Nucleated RBC 0.000 Nucleated RBC % 0.0 PT 12.8 INR 0.9 Sodium 138 Potassium 3.6 Chloride 104 Carbon Dioxide 26 Anion Gap 8
[2023-12-08 14:00] VITALS: BP 110/45; PULSE 86; RESP 18; TEMP 36.7; O2SAT 95
[2023-12-08 14:53] LABS: Albumin Level 4.3 g/dL (3.5-5.1); Alkaline Phosphatase 179 U/L (38-126); Anion Gap 10 mmol/L (4-12); Aspartate Amino Transferase 590 U/L (17-59); Bilirubin,Total 7.7 mg/dL (0.2-1.3); Blood Urea Nitrogen 8 mg/dL (9-20); Carbon Dioxide 26 mmol/L (22-30); Chloride 104 mmol/L (98-107); Estimated CRCL calculation 126 ml/min; Estimated Glomerular Filt Rate > 60; Glucose 124 mg/dL (65-110); Potassium 4.1 mmol/L (3.4-5.0); Sodium 140 mmol/L (137-145)
[2023-12-08 15:03] LABS: Alanine Aminotransferase 1090 U/L (6-50)
--- NOTE | 2023-12-08 16:00 | WPDGIPROGNO ---
Progress Note: A&P Assessment and Plan (1) Acute hepatitis: Code(s): B17.9 - Acute viral hepatitis, unspecified Status: Acute Assessment and Plan: denies any recent medication- only given steroid and zofran by his pcp when he was already sick, no acetaminophen, no antibiotics work up in progress including autoimmune panel, normal ceruloplasmin, hiv and EBV neg continue to monitor enzymes, still elevated- plan to transfer to hepatology service he received empirically mucomyst iv, discontinued after bag almost done because allergic reaction yesterday (it was used empirically) (2) Elevated liver enzymes: Code(s): R74.8 - Abnormal levels of other serum enzymes Status: Acute (3) Flu-like symptoms: Code(s): R68.89 - Other general symptoms and signs Status: Acute Assessment and Plan: it seems that started out like flu like symptoms- influenza, rsv and covid negative still with sore throat (4) Nausea and vomiting in adult: Code(s): R11.2 - Nausea with vomiting, unspecified Status: Acute Assessment and Plan: will need egd at some point, had one 5 years ago when had dysphagia Subjective Date/time seen: 12/08/23 16:00 Interval history: no major changes, still some sore throat Review of Systems Review of Systems: All systems reviewed & are unremarkable except as noted in HPI and below Exam Const: General: comfortable and no acute distress Other: icteric HENMT: Face/Nose/Sinus: Normal nares present Eyes: Sclera: normal sclerae Other: icteric Neck: Neck: supple Resp: Auscultation: clear to auscultation bilaterally Cardio: Rate: regular rate Rhythm: regular rhythm GI: Inspection: non-distended GI Palp: Yes Soft to palpation and No Tenderness to palpation present (GI) Auscultation: normal bowel sounds Skin: Other: jaundice Neuro: Speech: normal speech Motor exam (neuro): 5/5 motor strength present throughout Extrem: General: normal to inspection Psych: Mental Status: mental status grossly normal Objective Data Vital Signs Vital Signs: Vital Signs - 24 hr 12/07/23 20:25 12/08/23 05:52 12/08/23 09:16 Temperature 99.3 F 98.3 F Pulse Rate 75 68 Respiratory Rate 18 18 Blood Pressure 131/76 111/70 Pulse Oximetry 98 98 Oxygen Delivery Room Air 12/08/23 14:00 Temperature 98.1 F Pulse Rate 86 Respiratory Rate 18 Blood Pressure 110/45 L Pulse Oximetry 95 Oxygen Delivery Intake/Output Intake/Output: Intake & Output 12/05/23 12/06/23 12/07/23 12/08/23 23:59 23:59 23:59 23:59 Intake Total 1999 3515.0 2905 Balance 1999 3515.0 2905 Meds/Results Medications: Active Medications Generic Name Dose Route Start Last Admin Trade Name Freq PRN Reason Stop Dose Admin Diphenhydramine HCl 25 mg 12/07/23 16:52 Diphenhydramine Hcl Inj 50 Mg/Ml Vial IV PUSH Q6H PRN Itching Enoxaparin Sodium 40 mg 12/07/23 09:00 12/08/23 08:53 Enoxaparin 40 Mg/0.4 Ml Syringe SUB-Q Not Given DAILY SHIRA Sodium Chloride 1,000 mls @ 125 mls/hr 12/06/23 06:50 12/08/23 14:17 Normal Saline Iv IV CONT 125 mls/hr .Q8H SHIRA Administration Prednisone 40 mg 12/07/23 18:35 12/08/23 09:16 Prednisone 20 Mg Tablet PO 40 mg DAILY@0800 SHIRA Administration Radiology Results: ITS Impressions Abdomen MRI 12/06/23 13:54 IMPRESSION: 1. Benign cysts in left kidney. Abdomen/Pelvis CT 12/07/23 15:09 IMPRESSION: 1. No acute intra-abdominal/pelvic process. Labs Labs: Laboratory Results - last 24 hr 12/07/23 12/08/23 12/08/23 06:52 06:58 09:03 WBC 9.1 RBC 4.74 Hgb 14.0 Hct 42.6 MCV 89.9 MCH 29.5 MCHC 32.9 RDW 13.4 Plt Count 242 MPV 9.4 Immature Gran % (Auto) 0.2 Neut % (Auto) 73.7 H Lymph % (Auto) 18.2 L [place] % (Auto) 6.6 Eos % (Auto) 0.6 Baso % (Auto) 0.7 Lymph # (Auto) 1.65 [place] # (Auto)
[2023-12-08 20:10] VITALS: BP 132/78; PULSE 73; RESP 14; TEMP 37.2; O2SAT 100
[2023-12-09 05:52] VITALS: BP 125/68; PULSE 72; RESP 16; TEMP 36.6; O2SAT 99
[2023-12-09] MEDS: SODIUM CHLORIDE 0.9% IV 1,000 ML 125 ML IV CONT ×3 (06:12→23:15)
[2023-12-09 06:39] LABS: Basophils Absolute Auto 0.1 K/mm3 (0.0-0.1); Basophils Percent Auto 0.9 % (0.2-1.2); Eosinophils Absolute Auto 0.1 K/mm3 (0-0.3); Eosinophils Percent Auto 0.9 % (0-4.4); Hematocrit 38.1 % (42.0-52.0); Hemoglobin 12.6 g/dL (14.0-18.0); Immature Granulocyte Absolute 0.01 K/mm3 (0.00-0.031); Immature Granulocyte Percent A 0.1 % (0-0.5); Lymphocytes Absolute Auto 1.65 K/mm3 (0.9-3.2); Lymphocytes Percent Auto 21.2 % (18.3-44.2); Mean Corpuscular HGB Conc 33.1 g/dl (32-36); Mean Corpuscular Hemoglobin 29.7 pg (26-34); Mean Corpuscular Volume 89.9 fl (80-100); Mean Platelet Volume 10.1 fl (7.4-10.4); Monocytes Absolute Auto 0.6 K/mm3 (0.1-0.6); Monocytes Percent Auto 7.6 % (2.6-8.5); Neutrophils Absolute Auto 5.4 K/mm3 (1.3-6.7); Neutrophils Percent Auto 69.3 % (45.5-73.1); Platelet Count Result 227 k/mm3 (150-375); Red Blood Count 4.24 M/mm3 (4.6-6.20); Red Cell Distribution Width 13.8 % (11.5-14.5); White Blood Count 7.8 K/mm3 (4.5-10.0)
[2023-12-09 06:48] LABS: Albumin Level 3.8 g/dL (3.5-5.1); Alkaline Phosphatase 144 U/L (38-126); Anion Gap 6 mmol/L (4-12); Aspartate Amino Transferase 552 U/L (17-59); Bilirubin,Total 6.6 mg/dL (0.2-1.3); Blood Urea Nitrogen 8 mg/dL (9-20); Calcium 8.7 mg/dL (8.4-10.2); Carbon Dioxide 24 mmol/L (22-30); Chloride 105 mmol/L (98-107); Estimated CRCL calculation 126 ml/min; Estimated Glomerular Filt Rate > 60; Glucose 93 mg/dL (65-110); Potassium 3.5 mmol/L (3.4-5.0); Sodium 135 mmol/L (137-145)
[2023-12-09 06:59] LABS: Alanine Aminotransferase 1077 U/L (6-50)
[2023-12-09] MEDS: predniSONE 20 MG TABLET 40 MG PO (10:05)
[2023-12-09 12:33] LABS: Albumin Level 4.1 g/dL (3.5-5.1); Alkaline Phosphatase 138 U/L (38-126); Anion Gap 10 mmol/L (4-12); Aspartate Amino Transferase 554 U/L (17-59); Bilirubin,Total 6.7 mg/dL (0.2-1.3); Blood Urea Nitrogen 9 mg/dL (9-20); Calcium 8.6 mg/dL (8.4-10.2); Carbon Dioxide 24 mmol/L (22-30); Chloride 103 mmol/L (98-107); Estimated CRCL calculation 126 ml/min; Estimated Glomerular Filt Rate > 60; Glucose 107 mg/dL (65-110); Sodium 137 mmol/L (137-145)
[2023-12-09 12:51] LABS: Alanine Aminotransferase 1092 U/L (6-50)
[2023-12-09 14:00] VITALS: BP 130/72; PULSE 67; RESP 18; TEMP 36.6; O2SAT 100
--- NOTE | 2023-12-09 15:06 | WPDGIPROGNO ---
Progress Note: A&P Assessment and Plan (1) Acute hepatitis: Code(s): B17.9 - Acute viral hepatitis, unspecified Status: Acute Assessment and Plan: denies any recent medication- only given steroid and zofran by his pcp when he was already sick, no acetaminophen, no antibiotics CMV IgM Ab +, wonder if this could be cause of hepatitis normal ceruloplasmin, hiv and EBV neg, pending autoimmune enzymes still elevated but no major changes recommend hepatology and ID consult at tertiary center, he is not immunocompromised but given hepatitis wonder if may need treatment with ganciclovir or valganciclovir vs just monitor (2) CMV (cytomegalovirus) infection: Code(s): B25.9 - Cytomegaloviral disease, unspecified Status: Acute Assessment and Plan: + IgM Ab, pending PCR (3) Elevated liver enzymes: Code(s): R74.8 - Abnormal levels of other serum enzymes Status: Acute Assessment and Plan: no major changes (4) Flu-like symptoms: Code(s): R68.89 - Other general symptoms and signs Status: Acute Assessment and Plan: it seems that started out like flu like symptoms- influenza, rsv and covid negative still with sore throat (5) Nausea and vomiting in adult: Code(s): R11.2 - Nausea with vomiting, unspecified Status: Acute Assessment and Plan: will need egd at some point, had one 5 years ago when had dysphagia no urgent EGD given hepatitis Subjective Date/time seen: 12/09/23 15:06 Interval history: some nausea this morning, also stool more clear Review of Systems Review of Systems: All systems reviewed & are unremarkable except as noted in HPI and below Exam Const: General: comfortable and no acute distress Other: icteric HENMT: Face/Nose/Sinus: Normal nares present Eyes: Sclera: normal sclerae Other: icteric Neck: Neck: supple Resp: Auscultation: clear to auscultation bilaterally Cardio: Rate: regular rate Rhythm: regular rhythm GI: Inspection: non-distended GI Palp: Yes Soft to palpation and No Tenderness to palpation present (GI) Auscultation: normal bowel sounds Skin: Other: jaundice Neuro: Speech: normal speech Motor exam (neuro): 5/5 motor strength present throughout Extrem: General: normal to inspection Psych: Mental Status: mental status grossly normal Objective Data Vital Signs Vital Signs: Vital Signs - 24 hr 12/08/23 20:10 12/08/23 20:00 12/09/23 05:52 Temperature 99 F 98 F Pulse Rate 73 72 Respiratory Rate 14 16 Blood Pressure 132/78 125/68 Pulse Oximetry 100 99 Oxygen Delivery Room Air 12/09/23 14:00 Temperature 97.8 F Pulse Rate 67 Respiratory Rate 18 Blood Pressure 130/72 Pulse Oximetry 100 Oxygen Delivery Intake/Output Intake/Output: Intake & Output 12/06/23 12/07/23 12/08/23 12/09/23 23:59 23:59 23:59 23:59 Intake Total 1999 3515.0 4925 1833.3 Output Total 1600 Balance 1999 3515.0 3325 1833.3 Meds/Results Medications: Active Medications Generic Name Dose Route Start Last Admin Trade Name Freq PRN Reason Stop Dose Admin Diphenhydramine HCl 25 mg 12/07/23 16:52 Diphenhydramine Hcl Inj 50 Mg/Ml Vial IV PUSH Q6H PRN Itching Enoxaparin Sodium 40 mg 12/07/23 09:00 12/09/23 09:59 Enoxaparin 40 Mg/0.4 Ml Syringe SUB-Q Not Given DAILY [facility] Sodium Chloride 1,000 mls @ 125 mls/hr 12/06/23 06:50 12/09/23 06:12 Normal Saline Iv IV CONT 125 mls/hr .Q8H SHIRA Administration Ondansetron HCl 4 mg 12/09/23 09:24 Ondansetron Inj 4 Mg/2 Ml Vial IV PUSH Q4H PRN Nausea And Vomiting Prednisone 40 mg 12/07/23 18:35 12/09/23 10:05 Prednisone 20 Mg Tablet PO 40 mg DAILY@0800 SHIRA Administration Radiology Results: ITS Impressions Abdomen MRI 12/06/23 13:54 IMPRESSION: 1. Benign cysts in left kidney. Abdomen/Pelvis CT 12/07/23 15:09 IMPRESSION: 1. No acute intra-abdom
--- NOTE | 2023-12-09 15:44 | PM.IMPN ---
Progress Note: A&P Assessment and Plan (1) Nausea and vomiting in adult: Code(s): R11.2 - Nausea with vomiting, unspecified Status: Acute (2) Elevated liver enzymes: Code(s): R74.8 - Abnormal levels of other serum enzymes Status: Acute (3) Acute hepatitis: Code(s): B17.9 - Acute viral hepatitis, unspecified Status: Acute Plan Acute hepatitis etiology is likely viral given that patient had sore throat prior to onset of symptoms vs autoimmune Jaundice noted Bili 6.7 on admission now 6.7 from 7.4, ALT 831 to 1023 to 1092, AST 417 to 558 to 554 Hep viral panel, FLu, Covid and RSV negative HIV, EBV negative CMV, Mitochondrial and JORDON and Actin abd pending MRI Abd showed normal liver and simple renal cyst Gi following repeat CMP Currently pending transfer to [facility] GERD Hold Protonix DVT prophylaxis on on Lovenox Subjective Date/time seen: 12/09/23 15:44 Interval history: Patient comfortable at bedside and noted that his symptoms continues to improve LFTs still elevated Review of Systems Review of Systems: All other systems were reviewed and negative except as noted in the HPI above. Exam Narrative: General: alert and comfortable Eyes: EOMI, PERRLA , jaundice ENNT External ears normal, Neck is supple, no masses, Respiratory systems: Clear to auscultation Cardiovascular S1, S2, normal rhythm, no murmur, rub, or gallop; no thrill or palpable murmurs on palpation. Gastrointestinal: soft, non-tender, and non-distended abdomen with no masses; BS present Skin: sallow Musculoskeletal: no abnormality and no tenderness, normal ROM Neurologic: Alert and oriented x3, non focal Mental Status Exam: normal affect Objective Data Vital Signs Vital Signs: Vital Signs - 24 hr 12/08/23 20:10 12/08/23 20:00 12/09/23 05:52 Temperature 99 F 98 F Pulse Rate 73 72 Respiratory Rate 14 16 Blood Pressure 132/78 125/68 Pulse Oximetry 100 99 Oxygen Delivery Room Air 12/09/23 14:00 Temperature 97.8 F Pulse Rate 67 Respiratory Rate 18 Blood Pressure 130/72 Pulse Oximetry 100 Oxygen Delivery Intake/Output Intake/Output: Intake & Output 12/06/23 12/07/23 12/08/23 12/09/23 23:59 23:59 23:59 23:59 Intake Total 1999 3515.0 4925 2833.3 Output Total 1599 Balance 1999 3515.0 7555 2833.3 Meds/Results Medications: Active Medications Generic Name Dose Route Start Last Admin Trade Name Freq PRN Reason Stop Dose Admin Diphenhydramine HCl 25 mg 12/07/23 16:52 Diphenhydramine Hcl Inj 50 Mg/Ml Vial IV PUSH Q6H PRN Itching Enoxaparin Sodium 40 mg 12/07/23 09:00 12/09/23 09:59 Enoxaparin 40 Mg/0.4 Ml Syringe SUB-Q Not Given DAILY SHIRA Sodium Chloride 1,000 mls @ 125 mls/hr 12/06/23 06:50 12/09/23 15:10 Normal Saline Iv IV CONT 125 mls/hr .Q8H SHIRA Administration Ondansetron HCl 4 mg 12/09/23 09:24 Ondansetron Inj 4 Mg/2 Ml Vial IV PUSH Q4H PRN Nausea And Vomiting Prednisone 40 mg 12/07/23 18:35 12/09/23 10:05 Prednisone 20 Mg Tablet PO 40 mg DAILY@0800 SHIRA Administration Radiology Results: ITS Impressions Abdomen MRI 12/06/23 13:54 IMPRESSION: 1. Benign cysts in left kidney. Abdomen/Pelvis CT 12/07/23 15:09 IMPRESSION: 1. No acute intra-abdominal/pelvic process. Labs Labs: Laboratory Results - last 24 hr 12/07/23 12/09/23 12/09/23 06:52 05:48 12:02 WBC 7.8 RBC 4.24 L Hgb 12.6 L Hct 38.1 L MCV 89.9 MCH 29.7 MCHC 33.1 RDW 13.8 Plt Count 227 MPV 10.1 Immature Gran % (Auto) 0.1 Neut % (Auto) 69.3 Lymph % (Auto) 21.2 [place] % (Auto) 7.6 Eos % (Auto) 0.9 Baso % (Auto) 0.9 Lymph # (Auto) 1.65 [place] # (Auto) 0.6 Eos # (Auto) 0.1 Baso # (Auto) 0.1 Abs Immat Gran (auto) 0.01 Absolute Neuts (auto) 5.4 Absolute Nucleated RBC 0.000 Nucleated RBC % 0.0 Sodium
[2023-12-09 20:00] VITALS: O2SAT 100
[2023-12-09 20:29] VITALS: BP 114/63; PULSE 67; RESP 18; TEMP 36.5; O2SAT 100
[2023-12-09 21:28] VITALS: O2SAT 100
--- NOTE | 2023-12-10 00:30 | PC.NURSE ---
This RN spoke to [facility] transfer center, no available beds at this time.
[2023-12-10 04:18] LABS: CMV DNA Quant PCR IU/mL Not Detected (Not Detected); Cytomegalovirus DNA Quant PCR Not Detected Log IU/mL (Not Detected); Cytomegalovirus DNA Source Plasma
[2023-12-10 06:00] VITALS: BP 117/67; PULSE 77; RESP 20; TEMP 36.8; O2SAT 100
[2023-12-10 06:07] LABS: Basophils Absolute Auto 0.1 K/mm3 (0.0-0.1); Basophils Percent Auto 0.9 % (0.2-1.2); Eosinophils Absolute Auto 0.1 K/mm3 (0-0.3); Eosinophils Percent Auto 1.4 % (0-4.4); Hematocrit 37.6 % (42.0-52.0); Hemoglobin 12.5 g/dL (14.0-18.0); Immature Granulocyte Absolute 0.03 K/mm3 (0.00-0.031); Immature Granulocyte Percent A 0.4 % (0-0.5); Lymphocytes Absolute Auto 2.11 K/mm3 (0.9-3.2); Lymphocytes Percent Auto 27.6 % (18.3-44.2); Mean Corpuscular HGB Conc 33.2 g/dl (32-36); Mean Corpuscular Hemoglobin 29.8 pg (26-34); Mean Corpuscular Volume 89.7 fl (80-100); Mean Platelet Volume 9.8 fl (7.4-10.4); Monocytes Absolute Auto 0.5 K/mm3 (0.1-0.6); Monocytes Percent Auto 7.1 % (2.6-8.5); Neutrophils Absolute Auto 4.8 K/mm3 (1.3-6.7); Neutrophils Percent Auto 62.6 % (45.5-73.1); Platelet Count Result 230 k/mm3 (150-375); Red Blood Count 4.19 M/mm3 (4.6-6.20); Red Cell Distribution Width 13.9 % (11.5-14.5); White Blood Count 7.6 K/mm3 (4.5-10.0)
[2023-12-10 06:23] LABS: Lactic Acid Reflex 1.3 mmol/L (0.7-2.0)
[2023-12-10 06:30] LABS: Albumin Level 3.6 g/dL (3.5-5.1); Alkaline Phosphatase 141 U/L (38-126); Anion Gap 7 mmol/L (4-12); Aspartate Amino Transferase 488 U/L (17-59); Bilirubin,Total 6.1 mg/dL (0.2-1.3); Blood Urea Nitrogen 8 mg/dL (9-20); Calcium 8.8 mg/dL (8.4-10.2); Carbon Dioxide 27 mmol/L (22-30); Chloride 104 mmol/L (98-107); Estimated CRCL calculation 126 ml/min; Estimated Glomerular Filt Rate > 60; Glucose 85 mg/dL (65-110); Magnesium 1.9 mg/dL (1.6-2.3); Potassium 3.7 mmol/L (3.4-5.0); Sodium 138 mmol/L (137-145)
[2023-12-10 06:52] LABS: Alanine Aminotransferase 1038 U/L (6-50)
--- NOTE | 2023-12-10 09:07 | PM.IMPN ---
Progress Note: A&P Assessment and Plan (1) Nausea and vomiting in adult: Code(s): R11.2 - Nausea with vomiting, unspecified Status: Acute (2) Elevated liver enzymes: Code(s): R74.8 - Abnormal levels of other serum enzymes Status: Acute (3) Acute hepatitis: Code(s): B17.9 - Acute viral hepatitis, unspecified Status: Acute Plan Acute hepatitis etiology is likely viral given that patient had sore throat prior to onset of symptoms vs autoimmune Jaundice noted Bili 6.7 on admission now 6.7 from 7.4, ALT 831 to 1023 to 1092, AST 417 to 558 to 554 Hep viral panel, FLu, Covid and RSV negative Tylenol level negative HIV, EBV negative CMV IgM antibody 40.60, CMV DNA is not detected. Mitochondrial and JORDON and Actin abd pending MRI Abd showed normal liver and simple renal cyst Gi following repeat CMP Currently pending transfer to [facility] Symptoms related to most likely CMV hepatitis, since no CMV viremia will avoid any antiviral. Also hold and steroid treatment now. Continue to trend LFTs. GERD Hold Protonix DVT prophylaxis on on Lovenox Subjective Date/time seen: 12/10/23 09:07 Interval history: No new complaints. Remains afebrile. No nausea vomiting abdominal pain. Some body aches persist. Review of Systems Review of Systems: All other systems were reviewed and negative except as noted in the HPI above. Exam Narrative: General: alert and comfortable Eyes: EOMI, PERRLA , jaundice ENNT External ears normal, Neck is supple, no masses, Respiratory systems: Clear to auscultation Cardiovascular S1, S2, normal rhythm, no murmur, rub, or gallop; no thrill or palpable murmurs on palpation. Gastrointestinal: soft, non-tender, and non-distended abdomen with no masses; BS present Skin: No rash Musculoskeletal: no abnormality and no tenderness, normal ROM Neurologic: Alert and oriented x3, non focal Mental Status Exam: normal affect Objective Data Vital Signs Vital Signs: Vital Signs - 24 hr 12/09/23 14:00 12/09/23 20:29 12/09/23 20:00 Temperature 97.8 F 97.7 F Pulse Rate 67 67 Respiratory Rate 18 18 Blood Pressure 130/72 114/63 Pulse Oximetry 100 100 100 Oxygen Delivery Room Air 12/09/23 21:28 12/10/23 06:00 Temperature 98.2 F Pulse Rate 77 Respiratory Rate 20 Blood Pressure 117/67 Pulse Oximetry 100 100 Oxygen Delivery Room Air Intake/Output Intake/Output: Intake & Output 12/07/23 12/08/23 12/09/23 12/10/23 23:59 23:59 23:59 23:59 Intake Total 3515.0 4925 4083.3 550 Output Total 1600 Balance 3515.0 3325 4083.3 550 Meds/Results Medications: Active Medications Generic Name Dose Route Start Last Admin Trade Name Freq PRN Reason Stop Dose Admin Diphenhydramine HCl 25 mg 12/07/23 16:52 Diphenhydramine Hcl Inj 50 Mg/Ml Vial IV PUSH Q6H PRN Itching Enoxaparin Sodium 40 mg 12/07/23 09:00 12/09/23 09:59 Enoxaparin 40 Mg/0.4 Ml Syringe SUB-Q Not Given DAILY SHIRA Sodium Chloride 1,000 mls @ 125 mls/hr 12/06/23 06:50 12/09/23 23:15 Normal Saline Iv IV CONT 125 mls/hr .Q8H SHIRA Administration Ondansetron HCl 4 mg 12/09/23 09:24 Ondansetron Inj 4 Mg/2 Ml Vial IV PUSH Q4H PRN Nausea And Vomiting Prednisone 40 mg 12/07/23 18:35 12/09/23 10:05 Prednisone 20 Mg Tablet PO 40 mg DAILY@0800 SHIRA Administration Radiology Results: ITS Impressions Abdomen MRI 12/06/23 13:54 IMPRESSION: 1. Benign cysts in left kidney. Abdomen/Pelvis CT 12/07/23 15:09 IMPRESSION: 1. No acute intra-abdominal/pelvic process. Labs Labs: Laboratory Results - last 24 hr 12/07/23 12/09/23 12/10/23 06:52 12:02 05:49 WBC 7.6 RBC 4.19 L Hgb 12.5 L Hct 37.6 L MCV 89.7 MCH 29.8 MCHC 33.2 RDW 13.9 Plt Count 230 MPV 9.8 Immature Gran % (Auto) 0.4 Neut % (Auto) 62.6 Lymph % (Auto) 27.6 [place] % (Auto) 7
[2023-12-10] MEDS: predniSONE 20 MG TABLET 40 MG PO (09:30)
[2023-12-10] MEDS: SODIUM CHLORIDE 0.9% IV 1,000 ML 125 ML IV CONT (11:13)
[2023-12-10 13:25] VITALS: BP 158/45; PULSE 65; RESP 20; TEMP 36.8; O2SAT 94
--- NOTE | 2023-12-10 14:09 | WPDGIPROGNO ---
Progress Note: A&P Assessment and Plan (1) Acute hepatitis: Code(s): B17.9 - Acute viral hepatitis, unspecified Status: Acute Assessment and Plan: CMV IgM Ab +, wonder if this could be cause of hepatitis but PCR negative normal ceruloplasmin, hiv and EBV neg, pending autoimmune pending transfer to [facility] for hepatology and ID consult but enzymes started to come down (2) CMV (cytomegalovirus) infection: Code(s): B25.9 - Cytomegaloviral disease, unspecified Status: Acute Assessment and Plan: + IgM Ab, pcr negative though (3) Elevated liver enzymes: Code(s): R74.8 - Abnormal levels of other serum enzymes Status: Acute Assessment and Plan: bili is down today (4) Flu-like symptoms: Code(s): R68.89 - Other general symptoms and signs Status: Acute Assessment and Plan: it seems that started out like flu like symptoms- influenza, rsv and covid negative still with sore throat (5) Nausea and vomiting in adult: Code(s): R11.2 - Nausea with vomiting, unspecified Status: Acute Assessment and Plan: will need egd at some point, had one 5 years ago when had dysphagia no urgent EGD given hepatitis Subjective Date/time seen: 12/10/23 14:09 Interval history: no changes, still some sore throat Review of Systems Review of Systems: All systems reviewed & are unremarkable except as noted in HPI and below Exam Const: General: comfortable and no acute distress Other: icteric HENMT: Face/Nose/Sinus: Normal nares present Eyes: Sclera: normal sclerae Other: icteric Neck: Neck: supple Resp: Auscultation: clear to auscultation bilaterally Cardio: Rate: regular rate Rhythm: regular rhythm GI: Inspection: non-distended GI Palp: Yes Soft to palpation and No Tenderness to palpation present (GI) Auscultation: normal bowel sounds Skin: Other: jaundice Neuro: Speech: normal speech Motor exam (neuro): 5/5 motor strength present throughout Extrem: General: normal to inspection Psych: Mental Status: mental status grossly normal Objective Data Vital Signs Vital Signs: Vital Signs - 24 hr 12/09/23 20:29 12/09/23 20:00 12/09/23 21:28 Temperature 97.7 F Pulse Rate 67 Respiratory Rate 18 Blood Pressure 114/63 Pulse Oximetry 100 100 100 Oxygen Delivery Room Air Room Air 12/10/23 06:00 12/10/23 09:30 Temperature 98.2 F Pulse Rate 77 Respiratory Rate 20 Blood Pressure 117/67 Pulse Oximetry 100 Oxygen Delivery Room Air Intake/Output Intake/Output: Intake & Output 12/07/23 12/08/23 12/09/23 12/10/23 23:59 23:59 23:59 23:59 Intake Total 3515.0 4925 4083.3 2330 Output Total 1600 Balance 3515.0 3325 4083.3 2330 Meds/Results Medications: Active Medications Generic Name Dose Route Start Last Admin Trade Name Freq PRN Reason Stop Dose Admin Diphenhydramine HCl 25 mg 12/07/23 16:52 Diphenhydramine Hcl Inj 50 Mg/Ml Vial IV PUSH Q6H PRN Itching Enoxaparin Sodium 40 mg 12/07/23 09:00 12/10/23 09:31 Enoxaparin 40 Mg/0.4 Ml Syringe SUB-Q Not Given DAILY SHIRA Ondansetron HCl 4 mg 12/09/23 09:24 Ondansetron Inj 4 Mg/2 Ml Vial IV PUSH Q4H PRN Nausea And Vomiting Radiology Results: ITS Impressions Abdomen MRI 12/06/23 13:54 IMPRESSION: 1. Benign cysts in left kidney. Abdomen/Pelvis CT 12/07/23 15:09 IMPRESSION: 1. No acute intra-abdominal/pelvic process. Labs Labs: Laboratory Results - last 24 hr 12/07/23 12/10/23 06:52 05:49 WBC 7.6 RBC 4.19 L Hgb 12.5 L Hct 37.6 L MCV 89.7 MCH 29.8 MCHC 33.2 RDW 13.9 Plt Count 230 MPV 9.8 Immature Gran % (Auto) 0.4 Neut % (Auto) 62.6 Lymph % (Auto) 27.6 [place] % (Auto) 7.1 Eos % (Auto) 1.4 Baso % (Auto) 0.9 Lymph # (Auto) 2.11 [place] # (Auto) 0.5 Eos # (Auto) 0.1 Baso # (Auto) 0.1 Abs Immat Gran (
[2023-12-10 21:08] VITALS: BP 116/64; PULSE 61; RESP 14; TEMP 36.3; O2SAT 100
[2023-12-10 21:51] VITALS: O2SAT 99
[2023-12-11 05:48] VITALS: BP 121/73; PULSE 59; RESP 14; TEMP 36.2; O2SAT 100
[2023-12-11 06:25] LABS: Basophils Absolute Auto 0.1 K/mm3 (0.0-0.1); Eosinophils Absolute Auto 0.2 K/mm3 (0-0.3); Hematocrit 37.7 % (42.0-52.0); Hemoglobin 12.4 g/dL (14.0-18.0); Immature Granulocyte Absolute 0.04 K/mm3 (0.00-0.031); Immature Granulocyte Percent A 0.5 % (0-0.5); Lymphocytes Percent Auto 25.7 % (18.3-44.2); Mean Corpuscular HGB Conc 32.9 g/dl (32-36); Mean Corpuscular Hemoglobin 29.5 pg (26-34); Mean Corpuscular Volume 89.5 fl (80-100); Monocytes Absolute Auto 0.7 K/mm3 (0.1-0.6); Monocytes Percent Auto 8.2 % (2.6-8.5); Neutrophils Absolute Auto 5.1 K/mm3 (1.3-6.7); Neutrophils Percent Auto 62.6 % (45.5-73.1); Platelet Count Result 241 k/mm3 (150-375); Red Blood Count 4.21 M/mm3 (4.6-6.20); Red Cell Distribution Width 13.9 % (11.5-14.5); White Blood Count 8.2 K/mm3 (4.5-10.0)
[2023-12-11 06:36] LABS: Albumin Level 3.8 g/dL (3.5-5.1); Alkaline Phosphatase 135 U/L (38-126); Anion Gap 11 mmol/L (4-12); Aspartate Amino Transferase 430 U/L (17-59); Bilirubin,Total 6.2 mg/dL (0.2-1.3); Blood Urea Nitrogen 10 mg/dL (9-20); Calcium 8.9 mg/dL (8.4-10.2); Carbon Dioxide 26 mmol/L (22-30); Chloride 101 mmol/L (98-107); Estimated CRCL calculation 126 ml/min; Estimated Glomerular Filt Rate > 60; Glucose 87 mg/dL (65-110); Magnesium 1.9 mg/dL (1.6-2.3); Potassium 3.8 mmol/L (3.4-5.0); Sodium 138 mmol/L (137-145)
[2023-12-11 06:49] LABS: Alanine Aminotransferase 1044 U/L (6-50)
--- NOTE | 2023-12-11 11:43 | PM.IMPN ---
Progress Note: A&P Assessment and Plan (1) Nausea and vomiting in adult: Code(s): R11.2 - Nausea with vomiting, unspecified Status: Acute (2) Elevated liver enzymes: Code(s): R74.8 - Abnormal levels of other serum enzymes Status: Acute (3) Acute hepatitis: Code(s): B17.9 - Acute viral hepatitis, unspecified Status: Acute Plan Acute hepatitis etiology is likely viral given that patient had sore throat prior to onset of symptoms vs autoimmune Jaundice noted Bili 6.7 on admission now 6.7 from 7.4, ALT 831 to 1023 to 1092, AST 417 to 558 to 554 Hep viral panel, FLu, Covid and RSV negative Tylenol level negative HIV, EBV negative CMV IgM antibody 40.60, CMV DNA is not detected. Mitochondrial and JORDON and Actin abd pending MRI Abd showed normal liver and simple renal cyst Gi following repeat CMP Currently pending transfer to [facility] Symptoms related to most likely CMV hepatitis, since no CMV viremia will avoid any antiviral. Also hold and steroid treatment now. Continue to trend LFTs. GERD Hold Protonix DVT prophylaxis on on Lovenox Subjective Date/time seen: 12/11/23 11:43 Interval history: No overnight events. No new complaints. Some abdominal discomfort present some discomfort in the throat still persist. Review of Systems Review of Systems: All other systems were reviewed and negative except as noted in the HPI above. Exam Narrative: General: alert and comfortable Eyes: EOMI, PERRLA , jaundice ENNT External ears normal, Neck is supple, no masses, Respiratory systems: Clear to auscultation Cardiovascular S1, S2, normal rhythm, no murmur, rub, or gallop; no thrill or palpable murmurs on palpation. Gastrointestinal: soft, non-tender, and non-distended abdomen with no masses; BS present Skin: No rash Musculoskeletal: no abnormality and no tenderness, normal ROM Neurologic: Alert and oriented x3, non focal Mental Status Exam: normal affect Objective Data Vital Signs Vital Signs: Vital Signs - 24 hr 12/10/23 13:25 12/10/23 21:08 12/11/23 05:48 Temperature 98.2 F 97.4 F L 97.1 F L Pulse Rate 65 61 59 L Respiratory Rate 20 14 14 Blood Pressure 158/45 H 116/64 121/73 Pulse Oximetry 94 100 100 Oxygen Delivery 12/10/23 21:51 Temperature Pulse Rate Respiratory Rate Blood Pressure Pulse Oximetry 99 Oxygen Delivery Room Air Intake/Output Intake/Output: Intake & Output 12/08/23 12/09/23 12/10/23 12/11/23 23:59 23:59 23:59 23:59 Intake Total 4925 4083.3 3430 780 Output Total 1600 Balance 3325 4083.3 3430 780 Meds/Results Medications: Active Medications Generic Name Dose Route Start Last Admin Trade Name Freq PRN Reason Stop Dose Admin Diphenhydramine HCl 25 mg 12/07/23 16:52 Diphenhydramine Hcl Inj 50 Mg/Ml Vial IV PUSH Q6H PRN Itching Enoxaparin Sodium 40 mg 12/07/23 09:00 12/10/23 09:31 Enoxaparin 40 Mg/0.4 Ml Syringe SUB-Q Not Given DAILY SHIRA Ondansetron HCl 4 mg 12/09/23 09:24 Ondansetron Inj 4 Mg/2 Ml Vial IV PUSH Q4H PRN Nausea And Vomiting Radiology Results: ITS Impressions Abdomen MRI 12/06/23 13:54 IMPRESSION: 1. Benign cysts in left kidney. Abdomen/Pelvis CT 12/07/23 15:09 IMPRESSION: 1. No acute intra-abdominal/pelvic process. Labs Labs: Laboratory Results - last 24 hr 12/11/23 05:58 WBC 8.2 RBC 4.21 L Hgb 12.4 L Hct 37.7 L MCV 89.5 MCH 29.5 MCHC 32.9 RDW 13.9 Plt Count 241 MPV 10.0 Immature Gran % (Auto) 0.5 Neut % (Auto) 62.6 Lymph % (Auto) 25.7 [place] % (Auto) 8.2 Eos % (Auto) 2.0 Baso % (Auto) 1.0 Lymph # (Auto) 2.10 [place] # (Auto) 0.7 H Eos # (Auto) 0.2 Baso # (Auto) 0.1 Abs Immat Gran (auto) 0.04 H Absolute Neuts (auto) 5.1 Absolute Nucleated RBC 0.000 Nucleated RBC % 0.0 Sodium 138 Potassium 3.8 Chloride 101 Carbon Dioxide 26 Anion Gap 11 BUN 10 Creatinine
[2023-12-11 14:00] VITALS: BP 120/45; PULSE 100; RESP 18; TEMP 36.7; O2SAT 100
--- NOTE | 2023-12-11 14:17 | WPDGIPROGNO ---
Progress Note: A&P Assessment and Plan (1) Acute hepatitis: Code(s): B17.9 - Acute viral hepatitis, unspecified Status: Acute Assessment and Plan: CMV IgM Ab +, wonder if this could be cause of hepatitis but PCR negative- probably no need of antiviral normal ceruloplasmin, hiv and EBV neg, pending autoimmune panel awaiting transfer to tertiary hospital for hepatology evaluation but enzymes stable- another option is to discharge with close follow-up with hepatology, ? consider liver bx as outpatient if no improvement (2) CMV (cytomegalovirus) infection: Code(s): B25.9 - Cytomegaloviral disease, unspecified Status: Acute Assessment and Plan: + IgM Ab, pcr negative though (3) Elevated liver enzymes: Code(s): R74.8 - Abnormal levels of other serum enzymes Status: Acute Assessment and Plan: elevated but stable now (4) Flu-like symptoms: Code(s): R68.89 - Other general symptoms and signs Status: Acute Assessment and Plan: it seems that started out like flu like symptoms- influenza, rsv and covid negative still with sore throat (5) Nausea and vomiting in adult: Code(s): R11.2 - Nausea with vomiting, unspecified Status: Acute Assessment and Plan: will need egd at some point, had one 5 years ago when had dysphagia no urgent EGD given hepatitis Subjective Date/time seen: 12/11/23 14:17 Interval history: no changes Review of Systems Review of Systems: All systems reviewed & are unremarkable except as noted in HPI and below Exam Const: General: comfortable and no acute distress Other: icteric HENMT: Face/Nose/Sinus: Normal nares present Eyes: Sclera: normal sclerae Other: icteric Neck: Neck: supple Resp: Auscultation: clear to auscultation bilaterally Cardio: Rate: regular rate Rhythm: regular rhythm GI: Inspection: non-distended GI Palp: Yes Soft to palpation and No Tenderness to palpation present (GI) Auscultation: normal bowel sounds Skin: Other: jaundice Neuro: Speech: normal speech Motor exam (neuro): 5/5 motor strength present throughout Extrem: General: normal to inspection Psych: Mental Status: mental status grossly normal Objective Data Vital Signs Vital Signs: Vital Signs - 24 hr 12/10/23 21:08 12/11/23 05:48 12/10/23 21:51 Temperature 97.4 F L 97.1 F L Pulse Rate 61 59 L Respiratory Rate 14 14 Blood Pressure 116/64 121/73 Pulse Oximetry 100 100 99 Oxygen Delivery Room Air Intake/Output Intake/Output: Intake & Output 12/08/23 12/09/23 12/10/23 12/11/23 23:59 23:59 23:59 23:59 Intake Total 4925 4083.3 3430 780 Output Total 1600 Balance 3325 4083.3 3430 780 Meds/Results Medications: Active Medications Generic Name Dose Route Start Last Admin Trade Name Freq PRN Reason Stop Dose Admin Diphenhydramine HCl 25 mg 12/07/23 16:52 Diphenhydramine Hcl Inj 50 Mg/Ml Vial IV PUSH Q6H PRN Itching Enoxaparin Sodium 40 mg 12/07/23 09:00 12/10/23 09:31 Enoxaparin 40 Mg/0.4 Ml Syringe SUB-Q Not Given DAILY SHIRA Fluticasone Propionate 1 spray 12/11/23 11:45 Fluticasone Propionate 0.05% Na Spr 16 Gm Btl (*Bkc) NASAL Q12HR SHIRA Ondansetron HCl 4 mg 12/09/23 09:24 Ondansetron Inj 4 Mg/2 Ml Vial IV PUSH Q4H PRN Nausea And Vomiting Radiology Results: ITS Impressions Abdomen MRI 12/06/23 13:54 IMPRESSION: 1. Benign cysts in left kidney. Abdomen/Pelvis CT 12/07/23 15:09 IMPRESSION: 1. No acute intra-abdominal/pelvic process. Labs Labs: Laboratory Results - last 24 hr 12/11/23 05:58 WBC 8.2 RBC 4.21 L Hgb 12.4 L Hct 37.7 L MCV 89.5 MCH 29.5 MCHC 32.9 RDW 13.9 Plt Count 241 MPV 10.0 Immature Gran % (Auto) 0.5 Neut % (Auto) 62.6 Lymph % (Auto) 25.7 [place] % (Auto) 8.2 Eos % (Auto) 2.0 Baso % (Auto) 1.0 Lymph # (Auto) 2.10 [place] # (Auto) 0
[2023-12-11] MEDS: BENZOCAINE/MENTHOL (*BKC) 18 EA LOZENGE 1 LOZENGE PO (18:12)
[2023-12-11 21:25] VITALS: BP 114/65; PULSE 62; RESP 13; TEMP 36.1; O2SAT 100
[2023-12-11 21:27] VITALS: O2SAT 100
[2023-12-12 05:28] VITALS: BP 118/68; PULSE 63; RESP 12; TEMP 36.9; O2SAT 98
[2023-12-12 06:51] LABS: Basophils Absolute Auto 0.1 K/mm3 (0.0-0.1); Basophils Percent Auto 1.2 % (0.2-1.2); Eosinophils Absolute Auto 0.3 K/mm3 (0-0.3); Eosinophils Percent Auto 4.5 % (0-4.4); Hematocrit 38.1 % (42.0-52.0); Hemoglobin 12.9 g/dL (14.0-18.0); Immature Granulocyte Absolute 0.06 K/mm3 (0.00-0.031); Immature Granulocyte Percent A 0.9 % (0-0.5); Lymphocytes Absolute Auto 1.63 K/mm3 (0.9-3.2); Lymphocytes Percent Auto 24.4 % (18.3-44.2); Mean Corpuscular HGB Conc 33.9 g/dl (32-36); Mean Corpuscular Hemoglobin 29.9 pg (26-34); Mean Corpuscular Volume 88.2 fl (80-100); Mean Platelet Volume 10.1 fl (7.4-10.4); Monocytes Absolute Auto 0.6 K/mm3 (0.1-0.6); Monocytes Percent Auto 9.3 % (2.6-8.5); Neutrophils Percent Auto 59.7 % (45.5-73.1); Platelet Count Result 258 k/mm3 (150-375); Red Blood Count 4.32 M/mm3 (4.6-6.20); White Blood Count 6.7 K/mm3 (4.5-10.0)
[2023-12-12 07:04] LABS: Albumin Level 3.8 g/dL (3.5-5.1); Alkaline Phosphatase 143 U/L (38-126); Anion Gap 7 mmol/L (4-12); Aspartate Amino Transferase 361 U/L (17-59); Bilirubin,Total 6.4 mg/dL (0.2-1.3); Blood Urea Nitrogen 11 mg/dL (9-20); Carbon Dioxide 29 mmol/L (22-30); Chloride 99 mmol/L (98-107); Estimated CRCL calculation 126 ml/min; Estimated Glomerular Filt Rate > 60; Glucose 93 mg/dL (65-110); Magnesium 1.9 mg/dL (1.6-2.3); Sodium 135 mmol/L (137-145)
[2023-12-12 07:14] LABS: Alanine Aminotransferase 1022 U/L (6-50)
--- NOTE | 2023-12-12 11:09 | PM.DS ---
DS: Admitting Diagnosis Discharge Date 12/12/2023 Admitting Diagnosis nausea vomiting DS: Discharge Diagnosis Discharge Diagnosis (1) Nausea and vomiting in adult: Code(s): R11.2 - Nausea with vomiting, unspecified Status: Acute (2) Elevated liver enzymes: Code(s): R74.8 - Abnormal levels of other serum enzymes Status: Acute (3) Acute hepatitis: Code(s): B17.9 - Acute viral hepatitis, unspecified Status: Acute DS: Summary Hospital Course Hospital Course: Acute hepatitis etiology is likely viral given that patient had sore throat prior to onset of symptoms vs autoimmune Jaundice noted Bili 6.7 on admission with elevated liver enzymes primarily transaminases. Hep viral panel, FLu, Covid and RSV negative Tylenol level negative HIV, EBV negative CMV IgM antibody 40.60, CMV DNA is not detected. Suggestive of CMV hepatitis Mitochondrial and JORDON and Actin abd pending MRI Abd showed normal liver and simple renal cyst Gi following and suggested outpatient follow-up with hepatology repeat CMP in a week he was pending transfer to [facility] on admission however no bed available for more than 7 days and now with stable liver enzymes to slight improvement this will be planned as an outpatient basis. GERD Hold Protonix DVT prophylaxis on on Lovenox Time Spent with Patient Time attestation: Total time spent providing and/or coordinating discharge services: 30 minutes Exam Narrative: General: alert and comfortable Eyes: EOMI, PERRLA , jaundice ENNT External ears normal, Neck is supple, no masses, Respiratory systems: Clear to auscultation Cardiovascular S1, S2, normal rhythm, no murmur, rub, or gallop; no thrill or palpable murmurs on palpation. Gastrointestinal: soft, non-tender, and non-distended abdomen with no masses; BS present Skin: No rash Musculoskeletal: no abnormality and no tenderness, normal ROM Neurologic: Alert and oriented x3, non focal Mental Status Exam: normal affect DS: Data Data Completed and Pending Labs on day of discharge: Labs from last 24 hours 12/12/23 06:38 WBC 6.7 RBC 4.32 L Hgb 12.9 L Hct 38.1 L MCV 88.2 MCH 29.9 MCHC 33.9 RDW 14.0 Plt Count 258 MPV 10.1 Immature Gran % (Auto) 0.9 H Neut % (Auto) 59.7 Lymph % (Auto) 24.4 [place] % (Auto) 9.3 H Eos % (Auto) 4.5 H Baso % (Auto) 1.2 Lymph # (Auto) 1.63 [place] # (Auto) 0.6 Eos # (Auto) 0.3 Baso # (Auto) 0.1 Abs Immat Gran (auto) 0.06 H Absolute Neuts (auto) 4.0 Absolute Nucleated RBC 0.000 Nucleated RBC % 0.0 Sodium 135 L Potassium 4.0 Chloride 99 Carbon Dioxide 29 Anion Gap 7 BUN 11 Creatinine 0.70 Estim Creat Clear Calc 126 Estimated GFR > 60 Glucose 93 Calcium 9.0 Magnesium 1.9 Total Bilirubin 6.4 H AST 361 H ALT 1022 H Alkaline Phosphatase 143 H Total Protein 7.0 Albumin 3.8 Imaging Radiologist's impression: ITS Impressions Abdomen/Pelvis CT 12/06/23 06:18 Impression: 1 cm indeterminate lesion at the lateral aspect of left kidney. Pre and postcontrast MR advised to assess for solid lesion versus hyperdense cystic lesion. No etiology for jaundice identified. Abdomen MRI 12/06/23 13:54 IMPRESSION: 1. Benign cysts in left kidney. Abdomen/Pelvis CT 12/07/23 15:09 IMPRESSION: 1. No acute intra-abdominal/pelvic process. 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 call for appointment. call [phone] for appointment at [facility] hepatology Department. Call [phone] for appointment with [facility] hepatology Department. Tashi
[2023-12-13 11:18] LABS: Actin Antibody (IgG) <20 U (<20)
[2023-12-14 19:38] LABS: Mitochondrial (M2) Ab (IgG) <20.0 U
== END 2023-12-12 12:00 | disposition home health service (06) | DRG 443 ==
LOC: ANHED 12-06 06:49 → ANH3MEDSUR 12-06 07:54
PROVIDERS: Internal Medicine; Internal Medicine Gastroenterology; Nurse Practitioner Family; Admitting Provider General Practice; Emergency Provider Emergency Medicine; PCP Physician Assistant; Visit Provider Internal Medicine
DX: B25.1 Cytomegaloviral hepatitis (principal); K21.9 Gastro-esophageal reflux disease without esophagitis; L29.8 Other pruritus; T48.4X5A Adverse effect of expectorants, initial encounter; Z20.822 Contact with and (suspected) exposure to COVID-19; R11.2 Nausea with vomiting, unspecified
CPT/HCPCS: 36415; 74177; 74183; 80053; 80074; 80076; 80307; 81001; 82390; 82550; 82784; 83520; 83605; 83690; 83735; 85025; 85610; 85730; 86038; 86039; 86364; 86645; 86664; 86665; 86703; 87086; 87254; 87497; 87529; 87637; 96361; 96374; 96375; 99285; A9270; A9577; G0378; G0432; J0132; J1200; J1650; J2060; J2919; J7030; J7060; J7512; Q9967

== ENCOUNTER 2024-06-11 14:33 | Outpatient (CLI) | payer BC, SELFPAY ==
[2024-06-11 14:49] LABS: Basophils Percent Auto 0.3 % (0.2-1.2); Hemoglobin 14.4 g/dL (14.0-18.0); Immature Granulocyte Absolute 0.02 K/mm3 (0.00-0.031); Immature Granulocyte Percent A 0.2 % (0-0.5); Lymphocytes Absolute Auto 0.47 K/mm3 (0.9-3.2); Lymphocytes Percent Auto 4.3 % (18.3-44.2); Mean Corpuscular HGB Conc 34.3 g/dl (32-36); Mean Corpuscular Hemoglobin 29.7 pg (26-34); Mean Corpuscular Volume 86.6 fl (80-100); Mean Platelet Volume 8.6 fl (7.4-10.4); Monocytes Absolute Auto 0.4 K/mm3 (0.1-0.6); Monocytes Percent Auto 3.3 % (2.6-8.5); Neutrophils Absolute Auto 10.1 K/mm3 (1.3-6.7); Neutrophils Percent Auto 91.9 % (45.5-73.1); Platelet Count Result 267 k/mm3 (150-375); Red Blood Count 4.85 M/mm3 (4.6-6.20)
[2024-06-11 15:44] LABS: Alanine Aminotransferase 22 U/L (6-50); Albumin Level 4.4 g/dL (3.5-5.1); Alkaline Phosphatase 72 U/L (38-126); Anion Gap 9 mmol/L (4-12); Aspartate Amino Transferase 40 U/L (17-59); Bilirubin,Total 1.2 mg/dL (0.2-1.3); Blood Urea Nitrogen 15 mg/dL (9-20); Calcium 8.9 mg/dL (8.4-10.2); Carbon Dioxide 28 mmol/L (22-30); Chloride 101 mmol/L (98-107); Estimated Glomerular Filt Rate > 60; Glucose 117 mg/dL (65-110); Potassium 3.8 mmol/L (3.4-5.0); Sodium 138 mmol/L (137-145)
--- OUTSIDE RECORDS SUMMARY | 2024-06-11 16:52 | XMS_ITS | Encounter Summary ---
Author Organization [facility] Address [address] [place] [address] Care Team Providers Care Compensation Consultant Name Role Phone Unavailable Primary Care Provider Unavailabl e Encounter Details Date Type Department Care Team (Late Contact Info) Description 12/14/2023 Lab Requisition [facility] [address] [place] [address] Rai Elliott MD [address] [facility] [place] [address] Social History Tobacco Use Types Packs/Day Years Used Date Smoking Tobacco: Never Passive Smoke Exposure: Never Smokeless Tobacco: Never Sex and Gender Information Value Date Recorded Sex Assigned at Not on file 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 Gender Identity Not on file Sexual Orientation Not on file documented as of this encounter Plan of Treatment Upcoming Encounters Date Type Department Care Team (Late st Contact Info) Description 06/18/2024 Orders Only [facility] [place] [facility] [address], [address] [place] [address] Sandrine Jack PA [address] [place] [address] Abnormal liver enzymes 09/18/2024 10:20 AM CDT Office Visit [facility] [place] [facility] [address], [address] [place] [address] Sandrine Jack PA [address] [place] [address] documented as of this encounter Procedures Procedure Name Priority Date/Time Associated Diagnosis Comments CBC WITH DIFFERENTIAL Stat 12/14/2023 1:09 PM CDT PROTIME-INR Stat 12/14/2023 1:09 PM CDT COMPREHENSIVE METABOLIC PANEL Stat 12/14/2023 1:09 PM CDT documented in this encounter Results * (ABNORMAL) PROTIME-INR (12/14/2023 1:09 PM CDT) PROTIME 12.5(L) 12.7 - 15.1 Seconds 12/14/2023 3:45 PM CDT [facility] INR 0.9 0.9 - 1.1 12/14/2023 3:45 PM CDT [facility] Blood 12/14/2023 1:09 PM CDT 12/14/2023 3:10 PM CDT Narrative [facility] - 12/14/2023 3:45 PM CDT INR Therapeutic Range: Adult: 2.0 - 3.0 for pulmonary embolism or prophylaxis against venous thrombosis or systemic embolization. 2.0 - 3.0 for patients with tissue heart valves. 2.5 - 3.5 for patients with mechanical heart valves or post WI. Pediatric (12 years and under): 1.5 - 3.0 Although the target range in children is not well established, INR values of 1.5 - 3.0 are recommended for most patients. Higher values have been used in children with prosthetic cardiac valves and hereditary clotting disorders. Lena (<3 days) therapeutic ranges have not been established. Rai Elliott MD HEMATOLOGY ORDERABLES Final Result [facility] [employer] [facility] CLIA# [id number] [address] [place] [address] * (ABNORMAL) COMPREHENSIVE METABOLIC PANEL (12/14/2023 1:09 PM CDT) SODIUM 138 136 - 145 mmol/L 12/14/2023 3:57 PM CDT [facility] POTASSIUM 4.3 3.5 - 5.0 mmol/L 12/14/2023 3:57 PM CDT [facility] Comment: Testing was performed on Serum. Specimen of choice is [place] Heparinized Plasma. Serum Potassium Reference Range: 0 years - 150 years 3.5 - 5.1 mmol/L CHLORIDE 98 98 - 107 mmol/L 12/14/2023 3:57 PM CDT [facility] CO2 26 22 - 29 mmol/L 12/14/2023 3:57 PM CDT [facility] CALCIUM 10.1 8.6 - 10.2 mg/dL 12/14/2023 3:57 PM CDT [facility] BUN 11 6 - 20 mg/dL 12/14/2023 3:57 PM CDT [facility] CREATININE 0.75 0.67 - 1.17 mg/dL 12/14/2023 3:57 PM CDT [facility] GLUCOSE 82 74 - 99 mg/dL 12/14/2023 3:57 PM CDT [facility] TOTAL PROTEIN 7.2 6.7 - 8.6 g/dL 12/14/2023 3:57 PM CDT [facility] Comment: Testing was performed on Serum. Specimen of choice is [place] Heparinized Plasma. Serum TP Ref. Range: 3 years - 150 years 6.4 - 8.3 g/dL 2 years - 3 years 6.0 - 8.0 g/dL 1 year - 2 years 5.6 - 7.5 g/dL 7 months - 1 year 5.1 - 7.3 g/dL 7 days - 7 months 4.4 - 7.6 g/dL 0 days - 7 days 4.6 - 7.0 g/dL ALBUMIN 4.7 3.5 - 5.2 g/dL 12/14/2023 3:57 PM CDT [facility] BILIRUBIN TOTAL 8.1(H) 0.3 - 1.2 mg/dL 12/14/2023 3:57 PM CDT [facility] ALKALINE PHOSPHATASE 225(H) 40 - 129 U/L 12/14/2023 3:57 PM T [facility] AST 379(H) <41 U/L 12/14/2023 3:57 PM T [facility] ALT 1,043(H) <42 U/L 12/14/2023 3:57 PM T [facility] GFR >60 >=60 mL/min/1. 73 sq meter 12/14/2023 3:57 PM T [facility] Comment:eGFR calculated with 2020 CKD-EPI equation. Vegetarian diet, extremely high or low muscle mass, and may affect results. Cystatin C with Glomerular Filtration Rate is a suitable alternative for these patients. ANION GAP 14 8 - 16 mmol/L 12/14/2023 3:57 PM T [facility] Blood 12/14/2023 1:09 PM CDT 12/14/2023 3:10 PM CDT [facility] - 12/14/2023 3:57 PM CDT Samples containing indocyanine green cause interferences on Total and/or Direct Bilirubin and must not be measured. Rai Elliott MD CHEMISTRY ORDERABLES Final R es[id number] 5 [facility] [place] [address] * (ABNORMAL) CBC WITH DIFFERENTIAL (12/14/2023 1:09 PM CDT) WBC 6.5 4.0 - 9.8 K/uL 12/14/2023 3:24 PM CDT [facility] RBC 4.85 4.50 - 5.40 M/uL 12/14/2023 3:24 PM CDT [facility] HEMOGLOBIN 14.6 13.6 - 16.5 g/dL 12/14/2023 3:24 PM CDT [facility] HEMATOCRIT 43.3 40.0 - 48.0 % 12/14/2023 3:24 PM CDT [facility] MCV 89.3 82.0 - 99.0 fL 12/14/2023 3:24 PM CDT [facility] MCH 30.1 27.2 - 32.6 pg 12/14/2023 3:24 PM CDT [facility] MCHC 33.7 31.5 - 35.5 g/dL 12/14/2023 3:24 PM CDT [facility] RDW 14.2 11.5 - 14.5 % 12/14/2023 3:24 PM CDT [facility] RDW-STDEV 46.4 37.1 - 48.7 fL 12/14/2023 3:24 PM CDT [facility] PLATELETS 353(H) 140 - 350 K/uL 12/14/2023 3:24 PM CDT [facility] MPV 10.1 9.3 - 12.4 fL 12/14/2023 3:24 PM CDT [facility] NEUTROPHILS 63 % 12/14/2023 3:24 PM CDT [facility] LYMPHOCYTES 25 % 12/14/2023 3:24 PM CDT [facility] MONOCYTES 8 % 12/14/2023 3:24 PM CDT [facility] EOSINOPHILS 3 % 12/14/2023 3:24 PM CDT [facility] BASOPHILS 1 % 12/14/2023 3:24 PM CDT [facility] IMMATURE GRANULOCYTES 1 % 12/14/2023 3:24 PM CDT [facility] Comment:IG (Immature Granulo cyte) count includes Metamyelocytes, Myelocytes, and Promyelocytes NEUTROPHIL ABSOLUTE 4.07 1.90 - 7.00 K/uL 12/14/2023 3:24 PM CDT [facility] LYMPHOCYTE ABSOLUTE 1.64 0.70 - 4.50 K/uL 12/14/2023 3:24 PM CDT [facility] - [facility] [place] MONOCYTE ABSOLUTE 0.50 0.10 - 1.30 K/uL 12/14/2023 3:24 PM CDT [facility] - [facility] EOSINOPHIL ABSOLUTE 0.18 0.00 - 0.70 K/uL 12/14/2023 3:24 PM CDT [facility] - [facility] BASOPHILS ABSOLUTE 0.06 0.00 - 0.20 K/uL 12/14/2023 3:24 PM CDT [facility] - . [facility] IMMATURE GRANULOCYTES ABSOLUTE 0.04(H) 0.00 - 0.03 K/uL 12/14/2023 3:24 PM CDT [facility] - . [facility] Blood 12/14/2023 1:09 PM CDT 12/14/2023 3:10 PM CDT Rai Elliott MD HEMATOLOGY ORDERABLES Final Result [facility] CLIA# [id number] [address] [place] [address] documented in this encounter Visit Diagnoses Not on filedocumented in this encounter
--- OUTSIDE RECORDS SUMMARY | 2024-06-11 16:52 | XMS_ITS | Clinical Summary ---
Author Organization [facility] [place] Address [address] [place] [address] Phone Care Team Providers Care Sulphate Tester Name Role Phone Unavailable Primary Care Provider Unavailabl e Allergies Active Allergy Reactions Criticality Noted Date Comments Diclofenac Swelling Low 12/14/2023 Medications pantoprazole (PROTONIX) 40 mg Tablet, Delayed Release (E.C.) Take 40 mg by mouth daily. 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 PLANT Office Visit [facility] [address], [address] [place] [address] Sandrine Jack PA Abnormal liver enzymes (Primary Dx) from Last 3 Months Social History Tobacco Use Types Packs/Day Years Used Date Smoking Tobacco: Never Passive Smoke Exposure: Never Smokeless Tobacco: Never Tobacco Cessation:Counseling Given: Not Answered Sex and Gender Information Value Date Recorded Sex Assigned at Not on file 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 Gender Identity Not on file Sexual Orientation Not on file Last Filed Vital Signs Vital Sign Reading Time Taken Comments Blood Pressure 116/75 03/29/2024 10:47 AM SUPERVISOR SULF[employer] PLANT Pulse 83 03/29/2024 10:47 AM SUPERVISOR SULF[employer] PLANT Temperature - - Respiratory Rate - - Oxygen Saturation - - Inhaled Oxygen Concentration - - Weight 99.3 kg (219 lb) 03/29/2024 10:47 AM SUPERVISOR SULF[employer] PLANT Height 182.9 cm (6') 03/29/2024 10:47 AM SUPERVISOR SULFUR[employer] AC[employer] PLANT Body Mass Index 29.7 03/29/2024 10:47 AM SUPERVISOR SULF[employer]IC AC[employer] PLANT Plan of Treatment Upcoming Encounters Date Type Department Care Team (Late st Contact Info) Description 06/18/2024 Orders Only [facility] [address], [address] [place] [address] Sandrine Jack PA [address] [place] [address] Abnormal liver enzymes 09/18/2024 10:20 AM CDT Office Visit [facility] Hep[facility]ology [address], [address] [place] [address] Sandrine Jack PA [address] [place] [address] Health Maintenance Due Date Last Done Comments Pre-Diabetes and Diabetes Screening 1978 DTAP/TDAP/TD VACCINES (1 - Tdap) 1997 HEPATITIS B VACCINES (1 of 3 - 19+ 3-dose series) 1997 INFLUENZA VACCINE (#1) 2023 COLORECTAL SCREENING 12/07/2023 Colorectal Cancer Screening 12/07/2023 FIT-DNA Q 3 years 12/07/2023 FIT/FOBT Q 1 year 12/07/2023 Flex Sig/CT Colonography Q 5 years 12/07/2023 HPV VACCINES Aged Out No longer eligi ble based on patient's age to complete this topic PNEUMOCOCCAL VACCINE 0-49 YEARS Aged Out No longer eligible based on patient's age to complete this topic Procedures Procedure Name Priority Date/Time Associated Diagnosis Comments PROTIME-INR Routine 03/28/2024 10:27 AM SUPERVISOR S[employer]ANT Abnormal liver enzymes HEPATIC FUNCTION PANEL Routine 03/28/2024 10:27 AM SUPERVISOR S[employer]ANT Abnormal liver enzymes from Last 3 Months Results * PROTIME-INR (03/28/2024 10:27 AM SUPERVISOR SULF[employer] PLANT) Pathologist [facility] INR 1.0 Marga AmvonaAmira [place] Comment: Reference Range 0.9-1.1 Moderate-intensity Warfarin Therapy 2.0-3.0 Higher-intensity Warfarin Therapy 3.0-4.0 PROTIME 11.1 9.0 - 11.5 sec [facility] AmvonaAmira yousif Memo Comment: For additional information, please refer to http://education.[employer]/faq/HYG681 (This link is being provided for informational/ educational purposes only.) FASTING:NO FASTING: NO Test Performed at: [place] [address] [place] [address] LaurieShakiraLori Bhat Blood 03/28/2024 10:2 7 AM SUPERVISOR S[employer] PLANT 03/28/2024 10:27 AM SUPERVISOR SULF[employer]ANT Rai Elliott MD HEMATOLOGY ORDERABLES Final Result [facility] [phone] [place] [address] [address] [place] [phone] * HEPATIC FUNCTION PANEL (03/28/2024 10:27 AM SUPERVISOR [employer] PLANT) Pathologist [facility] TOTAL PROTEIN 6.8 6.1 - 8.1 g/dL [facility] AmvonaS benja Memo ALBUMIN 4.4 3.6 - 5.1 g/dL [facility] GLOBULIN 2.4 1.9 - 3.7 g/dL (calc) [facility] ALBUMIN/GLOBULIN RATIO 1.8 1.0 - 2.5 (calc) [facility] BILIRUBIN TOTAL 0.5 0.2 - 1.2 mg/dL [facility] BILIRUBIN DIRECT 0.1 < OR = 0.2 mg/dL [facility] benja Memo BILIRUBIN INDIRECT 0.4 0.2 - 1.2 mg/dL (calc) [facility] ALKALINE PHOSPHATASE 90 36 - 130 U/L [facility] [place] AST 18 10 - 40 U/L [facility] [place] ALT 22 9 - 46 U/L [facility] [place] Comment: FASTING:NO FASTING: NO Test Performed at: [facility] [address] [place] [address] Sharyn Bhat Blood 03/28/2024 10:2 7 AM SUPERVISOR [employer] 03/28/2024 10:27 AM SUPERVISOR S[employer] us Rai Elliott MD CHEMISTRY ORDERABLES Final R esult [facility] [phone] [facility] [address] [place] [address] from Last 3 [place] [address] [facility] [place] [address]
--- OUTSIDE RECORDS SUMMARY | 2024-06-11 16:52 | XMS_ITS | Clinical Summary ---
Author Organization [facility] Address [address] [place] [address] [place] [address] Care Team Providers Care Vascular Surgery Physician Name Role Phone Ruth Lopez MD Primary Care Provider [phone] Source Comments [facility],non-owned Affiliates and Associated Physician Practices is amultiple site organization consisting of ambulatory clinics and hospital sitesin [place], [place], [place] and [place]. This disclosure is being madepursuant to the Care Everywhere program and may not contain all information available regarding this patient. Last updated 17.[facility] [employer] Social History Tobacco Use Types Packs/Day Years Used Date Smoking Tobacco: Never Assessed Sex and Gender Information Value Date Recorded Sex Assigned at Not on file Gender Identity Not on file Sexual Orientation Not on file Plan of Treatment Health Maintenance Due Date Last Done Comments COLOGUARD (AGES 45-75) - COL ON CA SCREENING 1978 COLON MONITORING 1978 COLONOSCOPY - COLON CA SCREENING 1978 CT COLONOGRAPHY - COLON CA SCREENING 1978 Colorectal Cancer Screening 1978 FIT - COLON CA SCREENING 1978 FLEX SIG - COLON CA SCREENING 1978 LIPID TESTING 1978 HIV SCREENING 1993 HEPATITIS C SCREENING 12/01/1996 DTAP/TDAP/TD VACCINES (1 - Tdap) 1997 HEPATITIS B VACCINE (1 of 3 - 19+ 3-dose series) 1997 COVID-19 VACCINE ( - 2023-2 5 season) 2023 INFLUENZA VACCINE (#1) 2023 DEPRESSION SCREENING 03/21/2024 ZOSTER VACCINE (1 of 2) 2028 HIB VACCINE Aged Out No longer eligi ble based on patient's age to complete this topic HPV VACCINE Aged Out No longer eligi ble based on patient's age to complete this topic MENINGOCOCCAL (Group B) VACC INE SHARED DECISION-MAKING Aged Out No longer eligibl e based on patient's age to complete this topic MENINGOCOCCAL GROUPS A/C/Y/W VACCINE Aged Out No longer eligible b ased on patient's age to complete this topic PNEUMOCOCCAL VACCINE Aged Out No long er eligible based on patient's age to complete this topic Care Teams Vascular Surgery Physician Relationship Specialty Start Date End Date Ruth Lopez MD [address] [place] [id number] PCP - General 04/18/18
--- OUTSIDE RECORDS SUMMARY | 2024-06-11 16:52 | XMS_ITS | Data Portability ---
Author Organization ALMITA Rosenberg SIEphraim Mendieta Address [address] [facility] [place] [address] Care Team Providers Care Information Consultant Name Role Phone CHICO VERMA Primary Care Provider Unavailab le Assessment No assessment recorded. Plan of Treatment Reminders Order Date Submit Date Provider Last Modified By Organization Details Last Modified Time Details Appointments None recorded. Lab CBC w/ auto diff 2023 [facility], [address] [facility], [place], [address], 13:37:27 CMP, serum or plasma 2023 024 [facility], [address] [facility], [place], [address], 14:02:58 magnesium, serum or plasma 2023 024 [facility], [address] [facility], [place], [address], 4 17:24:17 amylase + lipase, serum 2023 024 [facility], [address] [facility], [place], [address], 4 17:23:43 TSH + free T4, serum 2023 024 [facility], [address] [facility], [place], [address], 4 16:38:04 CMP, serum or plasma 2023 024 [facility], [address] [facility], [place], [address], 4 16:38:37 CBC w/ auto diff 2023 024 [email or web address], [address], [place], [address], 4 16:39:25 lipid panel, serum 2023 024 [facility], [address], [place], [address], 4 16:38:14 HbA1c (hemoglobi n A1c), blood 2023 024 [facility], [address], [place], [address], 4 16:38:24 Referral None recorded. Procedures upper endoscopy procedure (EGD) (PROC) - Prior patient , acute swallowing issues, and underlying GERD. if possible to scope in near future we'd be so grateful. 2023 024 [email or web address] Gab Woodson MD, [address] [facility] [address], [place], [address], 5 17:50:35 Surgeries None recorded. Imaging XR, abdomen, complete 2023 024 [facility] (Imaging), [address] [facility] [address], [place], [address], 4 17:10:57 CT, angiogram, chest, w/ contrast [email or web address] (Imaging), [address] [facility] [address], [place], [address], 4 18:59:51 Medication Orders prednisone 20 mg tablet 2023 024 [id number], [address] [facility], [place], [place], [id number], 4 10:15:17 pantoprazo le 40 mg tablet,del ayed release 202309 024 [id number], [address] [facility], [place], [place], [id number], 4 09:31:12 Patient TargetsNo targets recorded. Patient InstructionsNo instructions recorded. Reason for Referral None Reported. Results Created Date Observation Date Name Description Value Unit Range Abnormal Flag Note LastModifiedBy Organization Detail LastModifiedTime 11/12/19 24 11/11/2023 XR, chest , 2 view No observ ation record ed. [address], [place], [address], 11/23/2023 09:59:42 12/05/19 24 12/05/2023 CT, angio gram, chest , w/ contr ast No observ ation record ed. [address] [facility], [place], [address], 12/05/2023 18:59:39 12/05/19 24 12/05/2023 XR, abdom en, compl ete No observ ation record ed. [address] [address], [place], [address], 12/05/2023 19:00:14 12/06/[address], abdom en + pelvi s, w/ contr ast No observ ation record ed. [address] [facility], [place], [address], 2023 13:36:27 12/06/19 24 2023 MRI, abdom en, w/wo contr ast No observ ation record ed. [address], [place], [address], 12/07/2023 08:43:14 12/07/19 24 12/07/2023 CT, abdom en + pelvi s, w/ contr ast No observ ation record ed. [address], [place], [address], 12/08/2023 09:05:52 Result Notes None recorded. Problems Name Problem SNOMED Code Status Onset Date Resolution Date Notes Provider Name and Address Organization Details Recorded Time Family history of cancer of colon 150277605 Active 2023 SKYLAR Gaines Attn: Neptali emery,[address] [facility], [place], [address], [facility] 4 09:41:53 Gastroesophage al reflux disease without esophagitis 384955283 Active 2023 SKYLAR Gaines Attn: Neptali emery,[address] [facility], [place], [address], [facility] 4 09:42:08 Body mass index 30+ - obesity 149292929 Active 2023 Sujit Herr MA null, [place] - [facility] 4 09:51:07 Long-term drug therapy Active 2023 SKYLAR Gaines Attn: Neptali emery,[address] [facility], [place], [address], [facility] 4 08:46:29 Problem Notes None recorded. Procedures Surgical History None recorded. Imaging Results Imaging Date Name Status LastModified by [facility] Details LastModified Time 11/11/2023 XR, chest, 2 view completed [address] [facility] [address], [place], [address], 11/23/2023 09:59:42 12/05/2023 CT, angiogram, chest, w/ contrast completed [address], [place], [address], 12/05/2023 18:59:39 12/05/2023 XR, abdomen, complete completed [address], [place], [address], 12/05/2023 19:00:[address], abdomen + pelvis, w/ contrast completed [address] [facility], [place], [address], 2023 13:36:27 2023 MRI, abdomen, w/wo contrast completed [address] [facility], [place], [address], 12/07/2023 08:43:14 12/07/2023 CT, abdomen + pelvis, w/ contrast completed [address] [address], [place], [address], 12/08/2023 09:05:52 Procedure Notes None recorded. Medical Equipment None Reported. Allergies No known drug allergies Medications Name Sig Start Date Stop Date Status Note LastModified by Organization Details LastModified Time amoxicill in 500 mg capsule 07/27 completed Not Available Not Available Not Available prednison e 20 mg tablet Take 2 tablets every day by oral route with meal(s) for 5 days. active Not Available Not Available No t Available sulfameth oxazole 800 mg-trimet hoprim 160 mg tablet 11/22 completed Not Available Not Available Not Available amoxicill in 875 mg tablet Take 1 tablet every 12 hours by oral route. active Not Available Not Available No t Available prednisol one acetate 1 % eye drops,tom pension 07/27 completed Not Available Not Available Not Available pantopraz ole 40 mg tablet,de layed release Take 1 tablet every day by oral route. active Not Available Not Available No t Available chlorprom azine 25 mg tablet Take 1 tablet 4 times a day by oral route as needed, for hiccups. 11/22 completed pt. stopped states that he doesn't feel like this was working Not Available Not Available Not Available levofloxa angeline 500 mg tablet 07/27 completed Not Available Not Available Not Available ondansetr on 4 mg disintegr ating tablet Place 1 tablet every 6 hours by translin gual route as needed, for nausea and vomiting . active Not Available Not Available No t Available amoxicill in 875 mg-potass ium clavulana te 125 mg tablet 07/27 completed Not Available Not Available Not Available Vitals Date Recorded Body height Respiratory rate Body mass index (BMI) Body weight Oxygen saturation Oxygen saturation in Arterial blood by Pulse oximetry Heart rate Systolic blood pressure Diastolic blood pressure Provider Name and Address Organization Details Last Updated DateTime 4 182.88 cm 20 /min 30 kg/m2 198520. 2 g 99 % 99 % 78 /min 124 mm[Hg] 78 mm[Hg] Sujit Herr MA [facility] 4 09:12:17 Date Recorded Systolic blood pressure Diastolic blood pressure Provider Name and Address Organization Details Last Updated DateTime 07/28/2023 132 mm[Hg] 82 mm[Hg] SKYLAR Gaines Attn: Accounting, [place], [address], [facility] 07/28/2023 09:31:57 Date Recorded Body height Body mass index (BMI) Body weight Respiratory rate Oxygen saturation Oxygen saturation in Arterial blood by Pulse oximetry Heart rate Systolic blood pressure Diastolic blood pressure Provider Name and Address Organization Details Last Updated DateTime 4 182.88 cm 30.3 kg/m2 237985. 39 g 20 /min 100 % 100 % 65 /min 118 mm[Hg] 68 mm[Hg] Sujit Herr MA [facility] 4 09:52:25 Date Recorded Body height Respiratory rate Body mass index (BMI) Body weight Oxygen saturation Oxygen saturation in Arterial blood by Pulse oximetry Heart rate Systolic blood pressure Diastolic blood pressure Provider Name and Address Organization Details Last Updated DateTime 4 182.88 cm 20 /min 29.4 kg/m2 22800.8 3 g 99 % 99 % 76 /min 130 mm[Hg] 82 mm[Hg] Sujit Herr MA [facility] 4 10:45:35 Date Recorded Body temperature Systolic blood pressure Diastolic blood pressure Provider Name and Address Organization Details Last Updated DateTime 12/05/2023 97.7 [degF] 122 mm[Hg] 80 mm[Hg] SKYLAR Gaines Attn: Accounting, [address] [place], [address], [facility] 12/05/2023 11:02:53 Social History Question Answer Notes LastModified by Organizat ion Details LastModified Time Tobacco Smoking Status Never Smoker ALYSE Duron, [facility] 07/26/2023 10:23:38 Do You Have An Advance Directive? No Information not available 07/28/2023 What Is Your Level Of Alcohol Consumption? Occasional Information not available 07/26/2023 Are You Blind Or Do You Have Difficulty Seeing? No Contacts Information not available 07/26/2023 What Is Your Level Of Caffeine Consumption? Occasional Information not available 07/26/2023 In The 14 Days Before Symptom Onset, Have You Had Close Contact With A Laboratory-confir med COVID-19 While That Case Was Ill? No Information not available 07/26/2023 In The 14 Days Before Symptom Onset, Have You Had Close Contact With A Person Who Is Under Investigation For COVID-19 While That Person Was Ill? No Information not available 07/26/2023 Have You Been To An Area Known To Be High Risk For COVID-19? No Information not available 07/26/2023 Are You Deaf Or Do You Have Serious Difficulty Hearing? No Information not available 07/26/2023 What Type Of Diet Are You Following? REGULAR Information not available 07/26/2023 Are There Any Guns Present In Your Home? No Information not available 07/26/2023 What Was The Date Of Your Most Recent Tobacco Screening? 12/05/2023 Information not available 12/05/2023 What Is Your Relationship Status? Information not available 11/23/2023 Do You Use Your Seat Belt Or Car Seat Routinely? Yes Information not available 07/26/2023 Do You Have Smoke And Carbon Monoxide Detectors In Your Home? Yes Information not available 07/26/2023 Do You Use Any Illicit Or Recreational Drugs? No Information not available 07/26/2023 Do You Use Sunscreen Routinely? No Information not available 07/26/2023 Has Tobacco Cessation Counseling Been Provided? Yes Information not available 07/26/2023 On What Date Was Tobacco Cessation Counseling Provided? 12/05/2023 Information not available 12/05/2023 Do You Or Have You Ever Used Any Other Forms Of Tobacco Or Nicotine? No Information not available 07/26/2023 Sex: Male Functional Status Question Answer Note LastModified by Organization D etails LastModified Time Are you able to care for yourself? Yes Information not available 07/26/2023 What is your exercise level? Moderate Information not available 07/26/2023 Mental Status None recorded. Family History Relationship Description Onset Age of this Age Resolved Age Notes LastModified by Organization Details LastModified Time Father Infected pacemaker [email or web address] Not available 2023 09:49:59 Father Heart disease tcarterma Not available 2023 09:50:08 Medical History No medical history recorded. Past Encounters Encounter ID Performer Location Encounter Start Date Encounter Closed Date Diagnosis/Indication Diagnosis SNOMED-CT Code Diagnosis ICD10 Code Diagnosis Note [id number] SKYLAR Gaines [facility] [employer] [address] [place] [address] 07/28/2023 09:02:18 07/28/2023 10:44:26 Adult health examination 932664222 Z00.01 well exam completed. fasting labs ordered Gastroesop hageal reflux disease without esophagitis 801100980 K21.9 refill on PPI therapy Long-term drug therapy 148074381 Z79.899 routine labs ordered fasting. Cholesterol screening 27 4614047 Z13.220 Diabetes m ellitus screening 792979996 Z13.1 Thyroid di sorder screening 130247365 Z13.29 Family his tory of cancer of colon 726954699 Z80.0 mother passed age 56 , colon Cancer. pt completed colonoscop y around 3 years ago. will await records transfer. Prostatitis 4064903 N41. 9 pt to call and make sure f/u with urology is obtained and discuss need for f/u psa and urine. [id number] SKYLAR Gaines [employer] [address] [place] [address] 11/23/2023 09:30:13 11/23/2023 11:03:27 Body mass index 30+ - obesity 414900645 Z68.30 BMI is 30.3 Viral uppe r respiratory tract infection 001300970 J06.9 Start prednisone 40 mg daily x5 days to help with residual post viral URI. Gastroesop hageal reflux disease without esophagitis 437887996 K21.9 Continue PPI therapy as directed. Reflux symptoms are stable on medication [id number] [facility] e - Ely Ferreira [address] [place] [address] 12/05/2023 10:34:31 12/05/2023 12:01:01 Swallowing painful 50106605 R13.19 Refer for upper endoscopy procedure Nausea and vomiting 1692 1999 R11.2 Send for stat x-ray of the abdomen/ob structive series check stat CBC CMP magnesium and amylase and lipase with nausea and vomiting. He may continue to use Zofran as needed for the nausea at this time. Continue to stay hydrated. Gastroesop hageal reflux disease without esophagitis 270779684 K21.9 Continue PPI therapy as directed. Long-term drug therapy 986676248 Z79.899 Dyspnea at rest 15104430 [address] R06.[address] angiogram of the chest rule out pulmonary embolism or other mediastina l etiology causing acute shortness of breath and dysphagia Health Concerns Section Related Observation LastModified by Organization Detai ls LastModified Time None Recorded Concern Status LastModified by Organization Details LastModified Time None Recorded Advance Directives Directive N: Payers Encounter Date Sequence Insurance Name Policy Number Policy Alcala Covered Member ID Alcala Member ID Guarantor Name 07/28/2023 1 [employer] (PP[employer]) [id number] Javier Guerrero [id number] Javier Guerrero 11/23/2023 1 [employer]) [id number] Javier Guerrero [id number] Javier Guerrero 12/05/2023 1 [employer] (PP[employer]) [id number] Javier [id number] Javier Guerrero Notes Date Note Type Note Provider Name and Address Organization Details Recorded Time 07/28/2023 text/html Reflux/GERDRepor edgar bypatient.Notes:stable but has been out of pantoprazole. refill needed. no major issues while out of med pt has prostatitis and on bactrim from urology . SKYLAR Gaines Attn: Accounting,[address] [place], [address], [facility] 07/28/2023 09:42:22 11/23/2023 text/html Reflux/GERDRepor edgar bypatient.Notes:Patien benja had been without his PPI therapy prior to episode of hiccups starting. He has restarted his PPI therapy. His symptoms are controlled now as far as reflux is concerned and the hiccups stopped.Upper Respiratory SymptomsReported bypatient.Location:[facility]; chest Quality:congested;dry cough Severity:no pain Duration:Onset this week in the last few days Context:no sick contacts; no foreign travel; non-smoker Associated Symptoms:no sputum production; no wheezing; no change in number of pillows needed to sleep at night; no sweats; no fever; no significant weight gain; no sore throat; no vomiting; no nausea;shortness of breath(With coughing and just inability to get a deep breath) SKYLAR Gaines Attn: Accounting,[address] [place], [address], [facility] 11/27/2023 22:57:51 12/05/2023 text/html Patient presents with difficulty swallowing along with notable nausea and vomiting that has been present for several days. He originally had very aggressive episode of hiccups at the end of October. He had oral medication for this and after several days the hiccups did stop. He also had a normal chest x-ray completed at that time. During the time of hiccups he was in the emergency room with his parents who were ill and he came down with a respiratory infection in which he got a cough. He was seen in the office on November 22 for that and short prednisone 40 mg daily for 5 day course was given. He also was encouraged to make sure he takes his pantoprazole therapy on a daily basis because he had been off that prior to the hiccups starting. Now he presents with several days of overwhelming nausea with episodic vomiting and difficulty swallowing feeling like there is something in his throat. He really feels like this has been present since the episode of aggressive hiccups. He has not had any vomiting of blood or dark coffee-ground color. His bowels are moving regularly without blood or black coloring. He has no fevers or chills. He also has no abdominal pain. He has declined emergency room evaluation over the weekend. He is taking his PPI therapy daily. Zofran was sent out over the weekend and he did not pick it up. SKYLAR Gaines Attn: Accounting,[address] [place], [address], [facility] 12/05/2023 14:48:02
--- OUTSIDE RECORDS SUMMARY | 2024-06-11 16:52 | XMS_ITS | Encounter Summary ---
Author Organization [facility] Address [address] [place], [place] [address] [address] Care Team Providers Care Manpower Development Manager Name Role Phone Ruth Lopez MD Primary Care Provider [phone] Encounter Details Date Type Department Care Team (Late st Contact Info) Description 05/16/2018 Lab Requisition [facility] Care [facility] [address] [facility] [place] [address] Librado Rodriguez MD [address] [place] [address] Social History Tobacco Use Types Packs/Day Years Used Date Smoking Tobacco: Never Assessed Sex and Gender Information Value Date Recorded Sex Assigned at Not on file Gender Identity Not on file Sexual Orientation Not on file documented as of this encounter Plan of Treatment Not on file documented as of this encounter Procedures Procedure Name Priority Date/Time Associated Diagnosis Comments DERMATOPATHOLOGY Routine 05/15/2018 12:0 0 AM [facility] documented in this encounter Results * DERMATOPATHOLOGY (05/15/2018 12:00 AM [facility]) Case Report Dermatopathology Report Case: [id number] Authorizing Provider: Librado Rodriguez MD Collected: 05/15/2018 12:00 AM Pathologist: Mya Guillen MD Received: 05/16/2018 11:45 AM Specimen: Skin, right lower back 9 12:15 PM [facility] DERMATOPATHOLOGY LABORATORY Addendum 1 Lesion is not present at the sampled margin of the specimen. 12:15 PM [facility] DERMATOPATHOLOGY [facility] Addendum electronically signed by Mya Guillen MD on 05/24/2018 at 12:15 PM Final Diagnosis Specimen A. 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 12:15 PM [facility] DERMATOPATHOLOGY [facility] Gross Description Specimen A: Received is one formalin filled container labeled with the patient's name and designated right lower back. The specimen consists of a shave biopsy measuring [id number]. Jar 0. 12:15 PM [facility] DERMATOPATHOLOGY [facility]ORY Microscopic Description Specimen A. SKIN, right lower back: This is a compound nevus. There is melanin pigment in the stratum corneum. There is architectural disorder characterized by a lentiginous proliferation of melanocytes between irregular nevus nests of cells along the dermal epidermal junction. There is underlying fibroplasia of the papillary dermis. The intradermal component is bland in appearance and matures with depth. (Compound Elton's Nevus or Compound Dysplastic Nevus) 12:15 PM [facility] DERMATOPATHOLOGY LABORATORY Disclaimer An external and internal positive and negative controls are appropriate for the histochemical, immunohistochemical and immunofluorescence stain(s) in this case (if any), except where stated explicitly. The performance characteristics of the stain(s) cited in this report were developed and its performance characteristic determined by the Dermatopathology Laboratory at [facility], directed by Dr. Desi Nelson. These tests need not be, and therefore are not, approved by the [place] Food and Drug Administration. The tests are used for clinical purposes. Billing Codes Specimen Charges Stain Charges 65160 1 12:15 PM [facility] DERMATOPATHOLOGY LABOR[facility] Embedded Images 12:15 PM [facility] DERMATOPATHOLOGY LABOR[facility]ORY Pathology/Cytolog y TISSUE SPECIMEN FROM SKIN / Unknown 05/15/2018 05/16/2018 11:45 AM [facility] Librado Rodriguez MD LAB - PATHOLOGY/CYTO LOGY ORDERABLES DERMATOPATHOLOGY LABORATORY [facility] - Department of Dermatology [address] [place] [address], 5th Floor Lab [address] [phone] documented in this encounter Visit Diagnoses Not on filedocumented in this encounter Care Teams Manpower Development Manager Relationship Specialty Start Date End Date Ruth Lopez MD [address] [place] [address] PCP - General 04/18/18 documented as of this encounter
--- OUTSIDE RECORDS SUMMARY | 2024-06-11 16:52 | XMS_ITS | Encounter Summary ---
Author Organization [facility] Address [address] [place], [place] [address] [address] Care Team Providers Care Chemical Treatment Plant Technician Name Role Phone Ruth Lopez MD Primary Care Provider [phone] Encounter Details Date Type Department Care Team (Late st Contact Info) Description 02/23/2021 Lab Requisition [facility] [address] [place] [address] Librado Rodriguez MD [address] [place] [address] Social History Tobacco Use Types Packs/Day Years Used Date Smoking Tobacco: Never Assessed Sex and Gender Information Value Date Recorded Sex Assigned at Not on file Gender Identity Not on file Sexual Orientation Not on file documented as of this encounter Plan of Treatment Not on file documented as of this encounter Procedures Procedure Name Priority Date/Time Associated Diagnosis Comments DERMATOPATHOLOGY Routine 02/23/2021 12:0 0 AM POWER GENERATION TECHNICIAN documented in this encounter Results * DERMATOPATHOLOGY (02/23/2021 12:00 AM POWER GENERATION TECHNICIAN) Case Report Dermatopathology Report Case: [id number] Authorizing Provider: Librado Rodriguez MD Collected: 02/23/2021 12:00 AM Ordering Location: [facility] Received: 02/23/2021 11:09 AM Pathologist: Dacia Nelson MD Specimen: Skin, right neck 12:44 PM POWER GENERATION TECHNICIAN DERMATOPATHOLOGY LABORATORY Final Diagnosis Specimen A. 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 12:44 PM [facility] DERMATOPATHOLOGY LABORATORY Gross Description Specimen A: Received is one formalin filled container labeled with the patient's name and designated right neck. The specimen consists of a shave biopsy measuring [id number]. Jar 0. 12:44 PM [facility] DERMATOPATHOLOGY LABORATORY Microscopic Description Specimen A. SKIN, right neck: In the dermis, there are dilated vascular spaces surrounded by thin, widely spaced endothelial cells. 12:44 PM [facility] DERMATOPATHOLOGY LABORATORY Disclaimer An external and internal positive and negative controls are appropriate for the histochemical, immunohistochemical and immunofluorescence stain(s) in this case (if any), except where stated explicitly. The performance characteristics of the stain(s) cited in this report were developed and its performance characteristic determined by the Dermatopathology Laboratory at [facility], directed by Dr. Desi Nelson. These tests need not be, and therefore are not, approved by the [place] Food and Drug Administration. The tests are used for clinical purposes. Billing Codes Specimen Charges Stain Charges 20918 1 12:44 PM [facility] DERMATOPATHOLOGY LABORATORY Embedded Images 12:44 PM [facility] DERMATOPATHOLOGY LABORATORY Pathology/Cytolog y TISSUE SPECIMEN FROM SKIN / Unknown 02/23/2021 02/23/2021 11:09 AM POWER GENERATION TECHNICIAN Librado Rodriguez MD LAB - PATHOLOGY/CYTO LOGY ORDERABLES DERMATOPATHOLOGY LABORATORY [facility] - Department of Dermatology [facility] Medicine [address] [place] [address], [address] [phone] documented in this encounter Visit Diagnoses Not on filedocumented in this encounter Care Teams Chemical Treatment Plant Technician Relationship Specialty Start Date End Date Ruth Lopez MD [address] [place] [address] PCP - General 04/18/18 documented as of this encounter
--- OUTSIDE RECORDS SUMMARY | 2024-06-11 16:52 | XMS_ITS | Encounter Summary ---
Author Organization [facility] Address [address] [place], [place] [address] [address] Care Team Providers Care Fashion Consultant Selling Name Role Phone Ruth Lopez MD Primary Care Provider [phone] Encounter Details Date Type Department Care Team (Late st Contact Info) Description 12/05/2019 Lab Requisition [facility]erm[facility] Lab [address] [place] [address] Librado Rodriguez MD [address] [place] [address] Social History Tobacco Use Types Packs/Day Years Used Date Smoking Tobacco: Never Assessed Sex and Gender Information Value Date Recorded Sex Assigned at Not on file Gender Identity Not on file Sexual Orientation Not on file documented as of this encounter Plan of Treatment Not on file documented as of this encounter Procedures Procedure Name Priority Date/Time Associated Diagnosis Comments DERMATOPATHOLOGY Routine 12/05/2019 12:0 0 AM CDT documented in this encounter Results * DERMATOPATHOLOGY (12/05/2019 12:00 AM CDT) Case Report Dermatopathology Report Case: [id number] Authorizing Provider: Librado Rodriguez MD Collected: 12/05/2019 12:00 AM Ordering Location: [facility] Lab Received: 12/05/2019 02:34 PM Pathologist: Virginie Vargas MD Specimen: Skin, right posterior shoulder 0 1:51 PM CDT DERMATOPATHOLOGY LABORATORY Addendum 1 This lesion is not present at the sampled margin of the specimen. 0 1:51 PM CDT DERMATOPATHOLOGY LABORATORY Addendum electronically signed by Virginie Vargas MD on 12/07/2019 at 1:51 PM Final Diagnosis Specimen A. 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 0 1:51 PM CDT DERMATOPATHOLOGY LABORATORY Gross Description Specimen A: Received is one formalin filled container labeled with the patient's name and designated right posterior shoulder. The specimen consists of a shave biopsy measuring [id number]. Jar 0. 0 1:51 PM CDT DERMATOPATHOLOGY LABORATORY Microscopic Description Specimen A. SKIN, right posterior shoulder: This is a compound nevus. There is melanin pigment in the stratum corneum. There is architectural disorder characterized by a lentiginous proliferation of melanocytes between irregular nevus nests of cells along the dermal epidermal junction. There is underlying fibroplasia of the papillary dermis. The intradermal component is bland in appearance and matures with depth. (Compound Elton's Nevus or Compound Dysplastic Nevus) 0 1:51 PM CDT DERMATOPATHOLOGY LABORATORY Disclaimer An external and internal positive and negative controls are appropriate for the histochemical, immunohistochemical and immunofluorescence stain(s) in this case (if any), except where stated explicitly. The performance characteristics of the stain(s) cited in this report were developed and its performance characteristic determined by the Dermatopathology Laboratory at [facility], directed by Dr. Desi Nelson. These tests need not be, and therefore are not, approved by the [place] Food and Drug Administration. The tests are used for clinical purposes. Billing Codes Specimen Charges Stain Charges 19345 1 0 1:51 PM CDT DERMATOPATHOLOGY LABORATORY Embedded Images 0 1:51 PM CDT DERMATOPATHOLOGY LABORATORY Pathology/Cytolog y TISSUE SPECIMEN FROM SKIN / Unknown 12/05/2019 12/05/2019 2:34 PM CDT Librado Rodriguez MD LAB - PATHOLOGY/CYTO LOGY ORDERABLES DERMATOPATHOLOGY LABORATORY [facility] - Department of Dermatology [address], [address] [phone] documented in this encounter Visit Diagnoses Not on filedocumented in this encounter Care Teams Fashion Consultant Selling Relationship Specialty Start Date End Date Ruth Lopez MD [address] [place], [place] [id number] PCP - General 04/18/18 documented as of this encounter
== END 2024-06-11 14:34 | disposition home or self-care (01) ==
LOC: ANHLAB 14:36
PROVIDERS: PCP Physician Assistant; Visit Provider Physician Assistant
DX: R11.10 Vomiting, unspecified (principal)
CPT/HCPCS: 36415; 80053; 85025